=== PATIENT | male | born 1930 | race Caucasian/White ===

== ENCOUNTER 2018-07-25 10:48 | Inpatient (IN) | payer MEDICARE, BC ==
[~2018-07-25] VITALS: Ht 175.3 cm; Wt 76.0 kg
[~2018-07-25 10:48] MED LIST: ACET500C5 PO; ASCO500C15 PO; ASPI-1264 PO; ATOR10TA87 PO; BISA10SU60 RC; BISA5TAB10 PO; CALC500T11 PO; CLIN300C53 PO; D ME PO; DOCU-28 PO; HUM7525 SQ; HYDR-4383 PO; LANTUS SUBCUT; LEVO500T2 PO; LINA5TAB4 PO; MAGN400O6 PO; MELA5TAB12 PO; METO75TA PO; MULT1TAB74 PO; NA P133E4 RC; NEOM30OI16 TP; TRAZ-219 PO; VALS320T2 PO
[2018-07-25 13:01] LABS: BASOPHILS % (AUTO) 0.1 % (0-1); EOSINOPHILS # (AUTO) 0.1 X10'3 (0-0.9); EOSINOPHILS % (AUTO) 0.8 % (0-6); HEMATOCRIT 36.1 % (42.0-52.0); HEMOGLOBIN 12.3 g/dl (14.0-17.9); LYMPHOCYTES # (AUTO) 1.5 X10'3 (1.1-4.8); MEAN CORPUSCULAR HEMOGLOBIN 31.5 PG (27.0-31.0); MEAN CORPUSCULAR VOLUME 92.5 FL (78-98); MEAN PLATELET VOLUME 7.6 FL (7.4-10.4); MONOCYTES # (AUTO) 0.8 X10'3 (0-0.9); MONOCYTES % (AUTO) 5.1 % (2-12); NEUTROPHILS # (AUTO) 14.1 X10'3 (1.8-7.7); PLATELET COUNT 182 X10'3 (140-440); RED CELL DISTRIBUTION WIDTH 13.8 % (11.5-14.5); WHITE BLOOD COUNT 16.6 X10'3 (4.5-11.0)
[2018-07-25 13:15] LABS: ALANINE AMINOTRANSFERASE 22 U/L (12-78); ALBUMIN 3.1 G/DL (3.4-5.0); ALBUMIN/GLOBULIN RATIO 0.6 (1.1-1.5); ALKALINE PHOSPHATASE 105 IU/L (46-116); ANION GAP 11 (8-16); ASPARTATE AMINO TRANSFERASE 22 U/L (10-37); BILIRUBIN,TOTAL 0.7 MG/DL (0.1-1.0); BLOOD UREA NITROGEN 47 MG/DL (7-18); BUN/CREATININE RATIO 18.3 (5.4-32.0); CALCIUM 8.8 MG/DL (8.5-10.1); CHLORIDE 105 MMOL/L (99-107); CREATININE 2.57 MG/DL (0.60-1.10); GLUCOSE 128 MG/DL (70-104); POTASSIUM 4.5 MMOL/L (3.5-5.1); SODIUM 142 MMOL/L (135-145); TOTAL CARBON DIOXIDE 25.6 MMOL/L (24-32); TOTAL PROTEIN 8.1 G/DL (6.4-8.2); eGFR 24 ML/MIN
[2018-07-25 13:25] LABS: PARTIAL THROMBOPLASTIN TIME 29 SECONDS (22-32); PROTHROMBIN TIME 10.3 SECONDS (9.0-12.0)
[2018-07-25] MEDS ORDERED: ESCI10TA54 PO (13:56)
[2018-07-25] MEDS ORDERED: METO50TA7 PO (13:56)
[2018-07-25] MEDS ORDERED: ASPI-1265 PO (13:56)
[2018-07-25] MEDS ORDERED: LACTC PO (13:56)
[2018-07-25] MEDS ORDERED: QUET50TA PO (13:56)
[2018-07-25] MEDS ORDERED: MELA10TA PO (13:56)
[2018-07-25] MEDS ORDERED: ASCO500C15 PO (13:56)
[2018-07-25] MEDS ORDERED: MULT-1121 PO (13:56)
[2018-07-25] MEDS ORDERED: ATOR10TA87 PO (13:56)
[2018-07-25] MEDS ORDERED: INSU100C4 SQ (13:56)
[2018-07-25] MEDS ORDERED: QUET25TA PO ×2 (13:56)
[2018-07-25] MEDS ORDERED: FURO-150 PO ×3 (13:56→21:18)
[2018-07-25] MEDS ORDERED: INSU100I25 SQ (13:56)
[2018-07-25] MEDS ORDERED: DULR RC (13:56)
[2018-07-25] MEDS ORDERED: GUAI600T45 PO (13:56)
[2018-07-25] MEDS ORDERED: DOCU-28 PO (13:58)
[2018-07-25 14:08] LABS: CLARITY,URINE SLIGHTLY CLOUDY (Clear); COLOR,URINE YELLOW (Yellow); GLUCOSE, URINE NEGATIVE (Neg); KETONES,URINE NEGATIVE (Neg); LEUKOCYTE ESTERASE ,URINE MODERATE (Neg); NITRITES, URINE NEGATIVE (Neg); OCCULT BLOOD,URINE SMALL (Neg); PROTEIN,URINE 100 mg/dl (Neg); UROBILINOGEN,URINE 0.2 E.U/dL (0.2-1.0)
[2018-07-25 14:22] LABS: UA COLLECTION TYPE NON-SPECIFIED
[2018-07-25 14:25] LABS: BACTERIA,URINE FEW /HPF (Neg); MUCUS STRANDS FEW /LPF (Neg); RBC,URINE 0-2 /HPF (0-2); SQUAMOUS EPITHELIAL CELL,UR NONE SEEN /LPF (FEW); WBC,URINE 50-100 /HPF (0-4)
[2018-07-25] MEDS ORDERED: magnesium Cl slow-release 64mg tablet PO PRN (15:35)
[2018-07-25] MEDS ORDERED: ondansetron/PF 4mg/2ml inj IV PRN (15:35)
[2018-07-25] MEDS ORDERED: mag hydrox/Alum hydrox/simeth 30ml oral suspension PO PRN (15:35)
[2018-07-25] MEDS ORDERED: potassium Cl 20 mEq SR tablet PO PRN ×2 (15:35)
[2018-07-25] MEDS ORDERED: CefTRIAXone 2gm/D5W 50ml 50 ML IV ONE (15:35)
[2018-07-25] MEDS ORDERED: potassium Cl 40MEQ/NS 500ml 500 ML IV PRN ×2 (15:35)
[2018-07-25] MEDS ORDERED: magnesium 2GM in 50ml NS 50 ML IV PRN (15:35)
[2018-07-25] MEDS ORDERED: magnesium 4gm in 100ml NS 100 ML IV PRN (15:35)
[2018-07-25] MEDS ORDERED: magnesium hydroxide 30ml (MOM) UD suspension PO PRN (15:35)
[2018-07-25] MEDS ORDERED: MESSAGE TO PHARMACY PO ONE (15:40)
[2018-07-25] MEDS ORDERED: dextrose 50%-water 50ml dispensing syringe IV PRN ×2 (15:40)
[2018-07-25] MEDS ORDERED: glucagon, human recombinant 1mg kit SUBCUT PRN (15:40)
[2018-07-25] MEDS ORDERED: dextrose ORAL solution 15 GM/59 ML bottle PO PRN (15:40)
[2018-07-25] MEDS: normal saline 1000ml 1,000 ML IV SCH (16:14)
--- NOTE | 2018-07-25 17:30 | NUR ---
Patient in room [facility]. I have received report from Pj MIRAMONTES and had the opportunity to ask questions and assume patient care.
--- NOTE | 2018-07-25 18:18 | NUR ---
dinner tray to patient
--- NOTE | 2018-07-25 18:30 | NUR ---
Problems reprioritized. Patient report given, questions answered & plan of care reviewed with Vicky MIRAMONTES.
--- NOTE | 2018-07-25 18:40 | NUR ---
Patient in room [facility]. I have received report from Branden MIRAMONTES and had the opportunity to ask questions and assume patient care. Patient just arrived to floor from ER. Alert and oriented x2. Extremely [place].
[2018-07-25 19:00] VITALS: BP 143/56
[2018-07-25] MEDS: acetaminophen 325mg tablet PO PRN (19:17)
[2018-07-25] MEDS: heparin, porcine 5000 units/ml vial SQ SCH (19:22)
[2018-07-25] MEDS ORDERED: insulin glargine (Lantus) pen - multi-dose SQ SCH (21:00)
[2018-07-25] MEDS ORDERED: FURO40TA4 PO (21:18)
[2018-07-25] MEDS ORDERED: BISA5TAB10 PO (21:18)
[2018-07-25] MEDS ORDERED: NA P133E4 RC (21:27)
[2018-07-25] MEDS ORDERED: BISA10SU60 RC (21:27)
[2018-07-25] MEDS ORDERED: [UNRECOGNIZED DRUG - CODE] PO (21:28)
[2018-07-25] MEDS ORDERED: MAGN400O6 PO (21:28)
[2018-07-25] MEDS ORDERED: NEOM1OIN TOP (21:28)
[2018-07-25] MEDS ORDERED: ACET500C5 PO (21:28)
[2018-07-25] MEDS ORDERED: quetiapine 100mg tablet PO SCH (22:05)
[2018-07-25] MEDS ORDERED: Melatonin 3mg tablet PO SCH (22:05)
[2018-07-25] MEDS ORDERED: metoprolol succinate 25mg (24-HOUR) SR. Tablet PO SCH (22:05)
[2018-07-25] MEDS: furosemide 20MG tablet PO SCH ×2 (22:50→22:58)
[2018-07-25] MEDS: insulin Lispro (HumaLOG) vial - multi-dose SQ SCH (23:18)
[2018-07-26] VITALS: BP 103/46
--- NOTE | 2018-07-26 00:47 | NUR ---
Bladder scanned at 0030 just to check to see if retaining urine. Pt had 292cc. Pt. has been using his urinal going small amounts at a time. Has voided 4 x thus far, last amount was only 25cc. Will continue to monitor.
--- NOTE | 2018-07-26 06:09 | NUR ---
Problems reprioritized. Patient report given, questions answered & plan of care reviewed with Melba MIRAMONTES.
[2018-07-26 06:27] LABS: BASOPHILS % (AUTO) 0.1 % (0-1); EOSINOPHILS # (AUTO) 0.2 X10'3 (0-0.9); EOSINOPHILS % (AUTO) 2.2 % (0-6); HEMATOCRIT 33.5 % (42.0-52.0); HEMOGLOBIN 11.1 g/dl (14.0-17.9); LYMPHOCYTES # (AUTO) 2.7 X10'3 (1.1-4.8); LYMPHOCYTES % (AUTO) 25.5 % (21-51); MEAN CORPUSCULAR HEMOGLOBIN 31.1 PG (27.0-31.0); MEAN CORPUSCULAR HGB CONC 33.3 % (33.0-36.5); MEAN CORPUSCULAR VOLUME 93.3 FL (78-98); MEAN PLATELET VOLUME 7.8 FL (7.4-10.4); MONOCYTES # (AUTO) 0.8 X10'3 (0-0.9); MONOCYTES % (AUTO) 7.7 % (2-12); NEUTROPHILS # (AUTO) 6.9 X10'3 (1.8-7.7); NEUTROPHILS % (AUTO) 64.5 % (42-75); PLATELET COUNT 166 X10'3 (140-440); RED BLOOD COUNT 3.59 X10'6 (4.70-6.10); RED CELL DISTRIBUTION WIDTH 13.6 % (11.5-14.5); WHITE BLOOD COUNT 10.8 X10'3 (4.5-11.0)
[2018-07-26 06:30] LABS: ALANINE AMINOTRANSFERASE 19 U/L (12-78); ALBUMIN 2.7 G/DL (3.4-5.0); ALBUMIN/GLOBULIN RATIO 0.6 (1.1-1.5); ALKALINE PHOSPHATASE 95 IU/L (46-116); ANION GAP 11 (8-16); ASPARTATE AMINO TRANSFERASE 21 U/L (10-37); BILIRUBIN,TOTAL 0.5 MG/DL (0.1-1.0); BLOOD UREA NITROGEN 52 MG/DL (7-18); BUN/CREATININE RATIO 20.7 (5.4-32.0); CALCIUM 8.6 MG/DL (8.5-10.1); CHLORIDE 104 MMOL/L (99-107); CREATININE 2.51 MG/DL (0.60-1.10); GLUCOSE 210 MG/DL (70-104); POTASSIUM 4.1 MMOL/L (3.5-5.1); SODIUM 140 MMOL/L (135-145); TOTAL CARBON DIOXIDE 25.5 MMOL/L (24-32); TOTAL PROTEIN 7.3 G/DL (6.4-8.2); eGFR 24 ML/MIN
--- NOTE | 2018-07-26 06:30 | NUR ---
Patient in room [facility]. I have received report from Vicky MIRAMONTES and had the opportunity to ask questions and assume patient care. patient in bed sleeping appears comfortable
[2018-07-26 06:35] LABS: MAGNESIUM 2.1 MG/DL (1.5-2.4)
[2018-07-26 07:02] VITALS: BP 106/52
[2018-07-26] MEDS: heparin, porcine 5000 units/ml vial SQ SCH ×2 (07:44→19:58)
[2018-07-26] MEDS: azithromycin/NS 500mg/250ml 250 ML IV SCH (07:44)
[2018-07-26] MEDS: K and/or MAG REPLACEMENT MC SCH (08:00)
[2018-07-26] MEDS: insulin Lispro (HumaLOG) vial - multi-dose SQ SCH ×3 (09:13→19:02)
[2018-07-26] MEDS: CefTRIAXone/D5W-Rocephin 1gm 50 ML IV SCH (09:15)
[2018-07-26 10:54] VITALS: BP 111/52
[2018-07-26] MEDS: acetaminophen 325mg tablet PO PRN ×2 (11:21→23:32)
--- NOTE | 2018-07-26 14:55 | NUR ---
Initial/DMed: Pt admit w/ acute sepsis due to acute pneumonia, acute urinary tract infection and pyelonephritis. Pt is w/ dementia DM ed not appropriate at this time. Per MD note pt is w/ acute renal injury with elevated BUN possible dehydration and volume depletion. History of congestive heart failure.PO intake 75%. LBM 07/23/18 Will continue to monitor. Rec: 1. Continue with Heart Healthy Diet CHO control. 2. Monitor for ONS 3. Monitor for bowel care 4. Wt per RX Addendum: 07/26/18 at [address] Amended: Links added. Addendum: 07/26/18 at [address] LE[facility] Approves
--- NOTE | 2018-07-26 16:59 | NUR ---
I bladder scanned patient he had 214 in his bladder. I called Dr. June she had orders placed. I will continue to monitor.
[2018-07-26] MEDS: dextrose ORAL solution 15 GM/59 ML bottle PO PRN (17:22)
--- NOTE | 2018-07-26 18:13 | NUR ---
Problems reprioritized. Patient report given, Vicky MIRAMONTES questions answered & plan of care reviewed with . Patient sitting up in bed eating dinner
--- NOTE | 2018-07-26 18:20 | NUR ---
Patient in room [facility]. I have received report from Melba MIRAMONTES and had the opportunity to ask questions and assume patient care. Addendum: 07/27/18 at 0645 by Vicky Rayo RN Patient has been voiding and bladder scanned at 0045 for 200cc residual. Bladder scannned again at 0540 for total of 235cc residual, Did not straight cath this shift.
[2018-07-26 19:00] VITALS: BP 157/69
[2018-07-26] MEDS ORDERED: Melatonin 3mg tablet PO SCH (19:30)
[2018-07-26] MEDS ORDERED: quetiapine 100mg tablet PO SCH (19:30)
[2018-07-26] MEDS: metoprolol succinate 25mg (24-HOUR) SR. Tablet PO SCH (19:58)
[2018-07-26] MEDS: insulin glargine (Lantus) pen - multi-dose SQ SCH (20:48)
[2018-07-27 04:27] VITALS: BP 135/75
[2018-07-27] MEDS: K and/or MAG REPLACEMENT MC SCH (08:00)
[2018-07-27 08:21] VITALS: BP 119/79
[2018-07-27] MEDS: lactobacillus rhamnosus 10,000 MMU CELLS/CAPSULE PO SCH ×2 (08:27→19:35)
[2018-07-27] MEDS: heparin, porcine 5000 units/ml vial SQ SCH ×2 (08:27→19:36)
[2018-07-27] MEDS: insulin Lispro (HumaLOG) vial - multi-dose SQ SCH ×4 (08:36→20:52)
[2018-07-27] MEDS: azithromycin/NS 500mg/250ml 250 ML IV SCH (08:38)
[2018-07-27 08:55] LABS: BASOPHILS % (AUTO) 0.3 % (0-1); EOSINOPHILS # (AUTO) 0.3 X10'3 (0-0.9); EOSINOPHILS % (AUTO) 3.9 % (0-6); HEMATOCRIT 34.2 % (42.0-52.0); HEMOGLOBIN 11.6 g/dl (14.0-17.9); LYMPHOCYTES # (AUTO) 2.4 X10'3 (1.1-4.8); LYMPHOCYTES % (AUTO) 34.3 % (21-51); MEAN CORPUSCULAR HEMOGLOBIN 31.2 PG (27.0-31.0); MEAN CORPUSCULAR HGB CONC 33.9 % (33.0-36.5); MEAN CORPUSCULAR VOLUME 92.1 FL (78-98); MEAN PLATELET VOLUME 7.7 FL (7.4-10.4); MONOCYTES # (AUTO) 0.6 X10'3 (0-0.9); MONOCYTES % (AUTO) 9.1 % (2-12); NEUTROPHILS # (AUTO) 3.6 X10'3 (1.8-7.7); NEUTROPHILS % (AUTO) 52.4 % (42-75); PLATELET COUNT 179 X10'3 (140-440); RED BLOOD COUNT 3.72 X10'6 (4.70-6.10); RED CELL DISTRIBUTION WIDTH 14.2 % (11.5-14.5); WHITE BLOOD COUNT 6.9 X10'3 (4.5-11.0)
[2018-07-27 09:11] LABS: ALANINE AMINOTRANSFERASE 22 U/L (12-78); ALBUMIN 2.7 G/DL (3.4-5.0); ALBUMIN/GLOBULIN RATIO 0.6 (1.1-1.5); ALKALINE PHOSPHATASE 95 IU/L (46-116); ANION GAP 10 (8-16); ASPARTATE AMINO TRANSFERASE 42 U/L (10-37); BILIRUBIN,TOTAL 0.4 MG/DL (0.1-1.0); BLOOD UREA NITROGEN 58 MG/DL (7-18); BUN/CREATININE RATIO 24.1 (5.4-32.0); CALCIUM 8.6 MG/DL (8.5-10.1); CHLORIDE 104 MMOL/L (99-107); CREATININE 2.41 MG/DL (0.60-1.10); GLUCOSE 216 MG/DL (70-104); MAGNESIUM 2.3 MG/DL (1.5-2.4); POTASSIUM 4.2 MMOL/L (3.5-5.1); SODIUM 139 MMOL/L (135-145); TOTAL CARBON DIOXIDE 25.4 MMOL/L (24-32); TOTAL PROTEIN 7.6 G/DL (6.4-8.2); eGFR 26 ML/MIN
[2018-07-27] MEDS: CefTRIAXone/D5W-Rocephin 1gm 50 ML IV SCH (09:41)
[2018-07-27 11:00] VITALS: BP 128/62
[2018-07-27] MEDS: normal saline 1000ml 1,000 ML IV SCH (15:32)
[2018-07-27] MEDS ORDERED: non-formulary drug (Acetaminophen (Mapap) 1 CAP) PO PRN (17:20)
[2018-07-27] MEDS ORDERED: ACETAMINOPHEN PO PRN (17:20)
[2018-07-27] MEDS ORDERED: PHENYLEPHRINE PO PRN (17:20)
[2018-07-27] MEDS ORDERED: GUAIFENESIN PO PRN (17:20)
[2018-07-27] MEDS ORDERED: DEXTROMETHORPHAN PO PRN (17:20)
[2018-07-27] MEDS ORDERED: [UNRECOGNIZED DRUG - OTHER] PO PRN (17:20)
[2018-07-27] MEDS ORDERED: DOXYLAMINE PO PRN (17:20)
[2018-07-27] MEDS ORDERED: non-formulary drug (Na Phos,M-B/Na Phos,Di-Ba* (Fleet's Enema*) 1 BOTTLE) RC SCH (17:20)
--- NOTE | 2018-07-27 18:12 | NUR ---
Patient in room [facility]. I have received report from Melba MIRAMONTES and had the opportunity to ask questions and assume patient care. Pt ambulating with insurance claims assistant with PCT. IV intact. will continue to monitor.
--- NOTE | 2018-07-27 18:19 | NUR ---
Problems reprioritized. Patient report given, Vania MIRAMONTES questions answered & plan of care reviewed with . Patient walking the baxter with tech.
[2018-07-27] MEDS: docusate sod 100mg capsule PO SCH (19:35)
[2018-07-27] MEDS: guaiFENesin ER 600mg tablet PO SCH (19:36)
[2018-07-27] MEDS: metoprolol succinate 25mg (24-HOUR) SR. Tablet PO SCH (19:36)
[2018-07-27 20:00] VITALS: BP 175/86
[2018-07-27] MEDS ORDERED: non-formulary drug (Lactobacillus Acidophilus (ACIDOPHILUS capsule) 1 CAP) PO SCH (20:00)
[2018-07-27] MEDS: insulin glargine (Lantus) pen - multi-dose SQ SCH (20:51)
[2018-07-27] MEDS: Melatonin 3mg tablet PO SCH (20:53)
[2018-07-27] MEDS: furosemide 20MG tablet PO SCH ×2 (20:53→20:56)
[2018-07-27] MEDS ORDERED: non-formulary drug (Quetiapine Fumarate (Seroquel) 1 TAB) PO SCH (21:00)
[2018-07-27] MEDS ORDERED: non-formulary drug (Metoprolol Succinate* (Toprol Xl*) 1 TAB) PO SCH (21:00)
[2018-07-28] VITALS: BP 135/87
[2018-07-28] MEDS: normal saline 1000ml 1,000 ML IV SCH (03:46)
[2018-07-28] MEDS: acetaminophen 325mg tablet PO PRN (04:54)
--- NOTE | 2018-07-28 06:20 | NUR ---
Problems reprioritized. Patient report given, questions answered & plan of care reviewed with Caroline MIRAMONTES.
[2018-07-28 06:23] LABS: BASOPHILS % (AUTO) 0.3 % (0-1); EOSINOPHILS # (AUTO) 0.3 X10'3 (0-0.9); EOSINOPHILS % (AUTO) 4.8 % (0-6); HEMATOCRIT 31.3 % (42.0-52.0); HEMOGLOBIN 10.6 g/dl (14.0-17.9); LYMPHOCYTES # (AUTO) 2.5 X10'3 (1.1-4.8); LYMPHOCYTES % (AUTO) 38.7 % (21-51); MEAN CORPUSCULAR HEMOGLOBIN 31.2 PG (27.0-31.0); MEAN CORPUSCULAR HGB CONC 33.9 % (33.0-36.5); MEAN CORPUSCULAR VOLUME 91.9 FL (78-98); MEAN PLATELET VOLUME 7.3 FL (7.4-10.4); MONOCYTES # (AUTO) 0.6 X10'3 (0-0.9); NEUTROPHILS % (AUTO) 46.2 % (42-75); PLATELET COUNT 174 X10'3 (140-440); RED CELL DISTRIBUTION WIDTH 13.6 % (11.5-14.5); WHITE BLOOD COUNT 6.4 X10'3 (4.5-11.0)
--- NOTE | 2018-07-28 06:30 | NUR ---
Patient in room [facility]. I have received report from Vania MIRAMONTES and had the opportunity to ask questions and assume patient care. Patient in bed sleeping apperas comfortable. Call light in reach
[2018-07-28 06:38] LABS: ALANINE AMINOTRANSFERASE 20 U/L (12-78); ALBUMIN 2.5 G/DL (3.4-5.0); ALBUMIN/GLOBULIN RATIO 0.6 (1.1-1.5); ALKALINE PHOSPHATASE 84 IU/L (46-116); ANION GAP 8 (8-16); ASPARTATE AMINO TRANSFERASE 25 U/L (10-37); BILIRUBIN,TOTAL 0.3 MG/DL (0.1-1.0); BLOOD UREA NITROGEN 56 MG/DL (7-18); BUN/CREATININE RATIO 25.3 (5.4-32.0); CALCIUM 8.5 MG/DL (8.5-10.1); CHLORIDE 108 MMOL/L (99-107); CREATININE 2.21 MG/DL (0.60-1.10); GLUCOSE 129 MG/DL (70-104); MAGNESIUM 2.2 MG/DL (1.5-2.4); POTASSIUM 4.4 MMOL/L (3.5-5.1); SODIUM 142 MMOL/L (135-145); TOTAL CARBON DIOXIDE 25.8 MMOL/L (24-32); TOTAL PROTEIN 6.9 G/DL (6.4-8.2); eGFR 28 ML/MIN
[2018-07-28 07:30] VITALS: BP 141/70
[2018-07-28] MEDS: K and/or MAG REPLACEMENT MC SCH (08:00)
[2018-07-28] MEDS: aspirin 81mg tab.chew PO SCH (08:00)
[2018-07-28] MEDS: CefTRIAXone/D5W-Rocephin 1gm 50 ML IV SCH (09:03)
[2018-07-28] MEDS: neomy sulf/bacitrac zn/polymixin b oint 14.2 gm tube TP SCH (09:03)
[2018-07-28] MEDS: azithromycin 250mg tablet PO SCH (09:04)
[2018-07-28] MEDS: guaiFENesin ER 600mg tablet PO SCH ×2 (09:04→19:58)
[2018-07-28] MEDS: lactobacillus rhamnosus 10,000 MMU CELLS/CAPSULE PO SCH ×2 (09:04→19:58)
[2018-07-28] MEDS: multivitamins, therapeutics tablet PO SCH (09:04)
[2018-07-28] MEDS: heparin, porcine 5000 units/ml vial SQ SCH ×2 (09:04→19:59)
[2018-07-28] MEDS: atorvastatin 10mg tablet PO SCH (09:05)
[2018-07-28] MEDS: docusate sod 100mg capsule PO SCH ×2 (09:05→19:58)
[2018-07-28] MEDS: CITALOpram 10mg tablet PO SCH (09:05)
[2018-07-28] MEDS: furosemide 40mg tablet PO SCH (09:05)
[2018-07-28] MEDS: ascorbic acid 500mg tablet PO SCH (09:05)
[2018-07-28] MEDS: bisacodyl 5mg tablet.DR PO SCH (09:06)
[2018-07-28] MEDS: insulin Lispro (HumaLOG) vial - multi-dose SQ SCH ×3 (09:09→19:57)
[2018-07-28 11:30] VITALS: BP 105/52
[2018-07-28] MEDS ORDERED: bisacodyl 10mg suppository rectal RC ONE (15:35)
--- NOTE | 2018-07-28 18:30 | NUR ---
Problems reprioritized. Patient report given, Pat RN questions answered & plan of care reviewed with . Patient in bed tabs regional program manager light in reach
--- NOTE | 2018-07-28 18:30 | NUR ---
Patient in room [facility]. I have received report from FE Reilly and had the opportunity to ask questions and assume patient care.
[2018-07-28 19:30] VITALS: BP 147/74
[2018-07-28] MEDS: QUEtiapine 25mg tablet PO SCH (19:58)
[2018-07-28] MEDS: metoprolol succinate 25mg (24-HOUR) SR. Tablet PO SCH (19:58)
[2018-07-28] MEDS: furosemide 20MG tablet PO SCH (21:00)
[2018-07-28] MEDS: insulin glargine (Lantus) pen - multi-dose SQ SCH (22:59)
[2018-07-28] MEDS: Melatonin 3mg tablet PO SCH (23:00)
[2018-07-29] VITALS: BP 123/68
--- NOTE | 2018-07-29 06:30 | NUR ---
report given to FE Talamantes
[2018-07-29 07:00] VITALS: BP 159/66
[2018-07-29 07:42] LABS: BASOPHILS % (AUTO) 0.5 % (0-1); EOSINOPHILS # (AUTO) 0.3 X10'3 (0-0.9); EOSINOPHILS % (AUTO) 4.8 % (0-6); HEMATOCRIT 34.9 % (42.0-52.0); HEMOGLOBIN 11.6 g/dl (14.0-17.9); LYMPHOCYTES # (AUTO) 2.1 X10'3 (1.1-4.8); LYMPHOCYTES % (AUTO) 35.4 % (21-51); MEAN CORPUSCULAR HEMOGLOBIN 30.8 PG (27.0-31.0); MEAN CORPUSCULAR HGB CONC 33.3 % (33.0-36.5); MEAN CORPUSCULAR VOLUME 92.4 FL (78-98); MEAN PLATELET VOLUME 7.4 FL (7.4-10.4); MONOCYTES # (AUTO) 0.6 X10'3 (0-0.9); MONOCYTES % (AUTO) 9.6 % (2-12); NEUTROPHILS % (AUTO) 49.7 % (42-75); PLATELET COUNT 196 X10'3 (140-440); RED BLOOD COUNT 3.77 X10'6 (4.70-6.10); RED CELL DISTRIBUTION WIDTH 13.3 % (11.5-14.5)
[2018-07-29] MEDS: furosemide 40mg tablet PO SCH (08:00)
[2018-07-29] MEDS: K and/or MAG REPLACEMENT MC SCH (08:00)
[2018-07-29 08:03] LABS: ALANINE AMINOTRANSFERASE 27 U/L (12-78); ALBUMIN 2.7 G/DL (3.4-5.0); ALBUMIN/GLOBULIN RATIO 0.6 (1.1-1.5); ALKALINE PHOSPHATASE 90 IU/L (46-116); ANION GAP 12 (8-16); ASPARTATE AMINO TRANSFERASE 38 U/L (10-37); BILIRUBIN,TOTAL 0.3 MG/DL (0.1-1.0); BLOOD UREA NITROGEN 54 MG/DL (7-18); BUN/CREATININE RATIO 28.6 (5.4-32.0); CALCIUM 8.8 MG/DL (8.5-10.1); CHLORIDE 106 MMOL/L (99-107); CREATININE 1.89 MG/DL (0.60-1.10); GLUCOSE 222 MG/DL (70-104); MAGNESIUM 2.2 MG/DL (1.5-2.4); POTASSIUM 4.2 MMOL/L (3.5-5.1); SODIUM 142 MMOL/L (135-145); TOTAL CARBON DIOXIDE 24.5 MMOL/L (24-32); TOTAL PROTEIN 7.2 G/DL (6.4-8.2); eGFR 34 ML/MIN
[2018-07-29] MEDS: CITALOpram 10mg tablet PO SCH (08:21)
[2018-07-29] MEDS: bisacodyl 5mg tablet.DR PO SCH (08:21)
[2018-07-29] MEDS: ascorbic acid 500mg tablet PO SCH (08:21)
[2018-07-29] MEDS: CefTRIAXone/D5W-Rocephin 1gm 50 ML IV SCH (08:21)
[2018-07-29] MEDS: lactobacillus rhamnosus 10,000 MMU CELLS/CAPSULE PO SCH ×2 (08:21→19:10)
[2018-07-29] MEDS: multivitamins, therapeutics tablet PO SCH (08:21)
[2018-07-29] MEDS: aspirin 81mg tab.chew PO SCH (08:21)
[2018-07-29] MEDS: heparin, porcine 5000 units/ml vial SQ SCH ×2 (08:21→21:01)
[2018-07-29] MEDS: docusate sod 100mg capsule PO SCH ×2 (08:21→19:10)
[2018-07-29] MEDS: azithromycin 250mg tablet PO SCH (08:21)
[2018-07-29] MEDS: atorvastatin 10mg tablet PO SCH (08:21)
[2018-07-29] MEDS: guaiFENesin ER 600mg tablet PO SCH ×2 (08:21→19:10)
[2018-07-29] MEDS: neomy sulf/bacitrac zn/polymixin b oint 14.2 gm tube TP SCH (08:32)
[2018-07-29] MEDS: insulin Lispro (HumaLOG) vial - multi-dose SQ SCH ×4 (08:35→21:01)
[2018-07-29 11:00] VITALS: BP 138/73
[2018-07-29] MEDS ORDERED: CEFD300C3 PO (14:58)
[2018-07-29] MEDS ORDERED: LACT1CAP26 PO (14:58)
[2018-07-29] MEDS ORDERED: AZI25OT PO (14:58)
--- NOTE | 2018-07-29 16:00 | NUR ---
Notified Dr Alas pt can not return to [facility] today per Meghann in CM. The facility rep will see him in am to determine indepence and safety to return to facility.
[2018-07-29] MEDS: dextrose ORAL solution 15 GM/59 ML bottle PO PRN (17:06)
--- NOTE | 2018-07-29 17:59 | NUR ---
Problems reprioritized. Patient report given, questions answered & plan of care reviewed with FE Torres.
[2018-07-29 18:00] VITALS: BP 151/74
--- NOTE | 2018-07-29 18:30 | NUR ---
Patient in room [facility]. I have received report from Vinita MIRAMONTES and had the opportunity to ask questions and assume patient care. PT sitting up in chair at bedside, consuming meal with zest.
[2018-07-29] MEDS: metoprolol succinate 25mg (24-HOUR) SR. Tablet PO SCH (19:10)
[2018-07-29] MEDS: QUEtiapine 25mg tablet PO SCH (19:10)
[2018-07-29] MEDS: insulin glargine (Lantus) pen - multi-dose SQ SCH (21:00)
[2018-07-29] MEDS: furosemide 20MG tablet PO SCH (21:00)
[2018-07-29] MEDS: fluconazole 100mg tablet PO SCH (21:01)
[2018-07-29] MEDS: Melatonin 3mg tablet PO SCH (21:01)
[2018-07-30] VITALS: BP 146/76
[2018-07-30 06:27] LABS: BASOPHILS % (AUTO) 0.4 % (0-1); EOSINOPHILS # (AUTO) 0.4 X10'3 (0-0.9); EOSINOPHILS % (AUTO) 4.8 % (0-6); HEMATOCRIT 33.3 % (42.0-52.0); HEMOGLOBIN 11.2 g/dl (14.0-17.9); LYMPHOCYTES # (AUTO) 2.5 X10'3 (1.1-4.8); LYMPHOCYTES % (AUTO) 32.6 % (21-51); MEAN CORPUSCULAR HEMOGLOBIN 31.1 PG (27.0-31.0); MEAN CORPUSCULAR HGB CONC 33.8 % (33.0-36.5); MEAN CORPUSCULAR VOLUME 92.2 FL (78-98); MEAN PLATELET VOLUME 7.2 FL (7.4-10.4); MONOCYTES # (AUTO) 0.7 X10'3 (0-0.9); MONOCYTES % (AUTO) 9.3 % (2-12); NEUTROPHILS % (AUTO) 52.9 % (42-75); PLATELET COUNT 204 X10'3 (140-440); RED BLOOD COUNT 3.61 X10'6 (4.70-6.10); RED CELL DISTRIBUTION WIDTH 13.5 % (11.5-14.5); WHITE BLOOD COUNT 7.6 X10'3 (4.5-11.0)
[2018-07-30 06:44] LABS: ALANINE AMINOTRANSFERASE 34 U/L (12-78); ALBUMIN 2.7 G/DL (3.4-5.0); ALBUMIN/GLOBULIN RATIO 0.6 (1.1-1.5); ALKALINE PHOSPHATASE 92 IU/L (46-116); ANION GAP 10 (8-16); ASPARTATE AMINO TRANSFERASE 41 U/L (10-37); BILIRUBIN,TOTAL 0.4 MG/DL (0.1-1.0); BLOOD UREA NITROGEN 52 MG/DL (7-18); CHLORIDE 107 MMOL/L (99-107); CREATININE 2.08 MG/DL (0.60-1.10); GLUCOSE 187 MG/DL (70-104); MAGNESIUM 2.2 MG/DL (1.5-2.4); POTASSIUM 4.3 MMOL/L (3.5-5.1); SODIUM 141 MMOL/L (135-145); TOTAL CARBON DIOXIDE 23.6 MMOL/L (24-32); TOTAL PROTEIN 7.3 G/DL (6.4-8.2); eGFR 30 ML/MIN
--- NOTE | 2018-07-30 06:51 | NUR ---
Problems reprioritized. Patient report given, questions answered & plan of care reviewed with Madhuri and Lavinia RNs.
[2018-07-30 08:00] VITALS: BP 170/80
[2018-07-30] MEDS: CefTRIAXone/D5W-Rocephin 1gm 50 ML IV SCH ×3 (08:00→09:35)
[2018-07-30] MEDS: K and/or MAG REPLACEMENT MC SCH (08:00)
[2018-07-30] MEDS: lactobacillus rhamnosus 10,000 MMU CELLS/CAPSULE PO SCH (09:12)
[2018-07-30] MEDS: guaiFENesin ER 600mg tablet PO SCH (09:12)
[2018-07-30] MEDS: bisacodyl 5mg tablet.DR PO SCH (09:13)
[2018-07-30] MEDS: furosemide 40mg tablet PO SCH (09:13)
[2018-07-30] MEDS: atorvastatin 10mg tablet PO SCH (09:14)
[2018-07-30] MEDS: azithromycin 250mg tablet PO SCH (09:14)
[2018-07-30] MEDS: ascorbic acid 500mg tablet PO SCH (09:14)
[2018-07-30] MEDS: docusate sod 100mg capsule PO SCH (09:15)
[2018-07-30] MEDS: aspirin 81mg tab.chew PO SCH (09:15)
[2018-07-30] MEDS: multivitamins, therapeutics tablet PO SCH (09:15)
[2018-07-30] MEDS: CITALOpram 10mg tablet PO SCH (09:15)
[2018-07-30] MEDS: fluconazole 100mg tablet PO SCH (09:16)
[2018-07-30] MEDS: heparin, porcine 5000 units/ml vial SQ SCH (09:17)
[2018-07-30] MEDS: insulin Lispro (HumaLOG) vial - multi-dose SQ SCH ×2 (09:29→13:48)
[2018-07-30] MEDS: neomy sulf/bacitrac zn/polymixin b oint 14.2 gm tube TP SCH (09:34)
--- NOTE | 2018-07-30 10:17 | NUR ---
Reassessment: Acute sepsis d/t acute pneumonia and acute UTI and pyelonephritis resolving with tx per MD notes. Pt A/O x 3 and agitated and fatigued per physical assessment, will continue to monitor appropriateness for DM ed. Documented PO intake 75-100% meeting nutrient needs. LB 07/28. Will continue to follow. Rec: 1. Continue with Heart Healthy Diet CHO control. 2. Monitor for ONS 3. Monitor for bowel care 4. Wt per rx Addendum: 07/30/18 at [address] Amended: Links added.
[2018-07-30 12:00] VITALS: BP 137/76
[2018-07-30] MEDS ORDERED: CefTRIAXone 1000mg IM Kit (w/lidocaine diluent) IM ONE (12:50)
--- NOTE | 2018-07-30 15:04 | NUR ---
pt. discharged in a stable condition. Discussed discharge instructions, debetic management, medications with patient. Poor feedback/ pt. not interested. Stated "Well, who cares?" Encouraged and educated on the important of the information. Patient states he is missing "his only pair of shoes". Lost and found called. Awaiting response. Son, Cullen called, awaiting response. Staff at [facility] notified in report - her name was Concetta. Concetta was also notified that the patient has new antibiotic written prescriptions in his discharge paperwork. Pt. left with no IV as he had pulled his IV on RAC out earlier. Bandage applied. Patient did not leave any other valuables. Left with [employer] attendant in w/c.
--- NOTE | 2018-07-30 17:52 | NUR ---
Reviewed assessment, agree with Lavinia MIRAMONTES
== END 2018-07-30 15:18 | disposition home or self-care (01) | DRG 871 ==
LOC: EDBD 10:49 → ER 10:49 → ED HOLD 15:32 → MERGE 15:32 → SUR 3N 18:32
PROVIDERS: ADMIT Internal Medicine; ATTEND Family Medicine
DX: A41.9 Sepsis, unspecified organism (principal); J18.1 Lobar pneumonia, unspecified organism; I13.0 Hypertensive heart and chronic kidney disease with heart failure and stage 1 through stage 4 chronic kidney disease, or unspecified chronic kidney disease; N30.01 Acute cystitis with hematuria; N10 Acute pyelonephritis; N17.9 Acute kidney failure, unspecified; N18.3 Chronic kidney disease, stage 3 (moderate); E78.5 Hyperlipidemia, unspecified; F03.90 Unspecified dementia, unspecified severity, without behavioral disturbance, psychotic disturbance, mood disturbance, and anxiety; G89.29 Other chronic pain; I50.9 Heart failure, unspecified; Z66 Do not resuscitate; E11.22 Type 2 diabetes mellitus with diabetic chronic kidney disease; W06.XXXA Fall from bed, initial encounter; F32.9 Major depressive disorder, single episode, unspecified; R19.7 Diarrhea, unspecified; M54.5 Low back pain; Z95.0 Presence of cardiac pacemaker; Z79.82 Long term (current) use of aspirin; Z79.899 Other long term (current) drug therapy; Y93.89 Activity, other specified; Y92.89 Other specified places as the place of occurrence of the external cause; Y99.8 Other external cause status
CPT/HCPCS: 36415; 71045; 72070; 72100; 74176; 80053; 81001; 82948; 83036; 83605; 83690; 83735; 83880; 84145; 84484; 85025; 85610; 85730; 87040; 87070; 87088; 93005; 93306; 97161; 97530; 99285; G0378; J0456; J0696; J1644; J1815; J7030

== ENCOUNTER 2018-10-24 05:35 | Inpatient (IN) | payer MEDICARE, BC ==
[~2018-10-24] VITALS: Ht 182.9 cm; Wt 72.7 kg
[~2018-10-24 05:35] MED LIST changes: +ASPI-1265 PO; +ESCI10TA54 PO; +FURO-150 PO; +FURO40TA4 PO; +GUAI600T45 PO; +INSU100C4 SQ; +INSU100I25 SQ; +LACT1CAP26 PO; +LACTC PO; +MELA10TA PO; +METO50TA7 PO; +MULT-1121 PO; +NEOM1OIN TOP; +QUET50TA PO; +[UNRECOGNIZED DRUG - CODE] PO
[2018-10-24] MEDS ORDERED: acetaminophen 325mg tablet PO ONE (06:00)
[2018-10-24] MEDS ORDERED: morphine 4 MG/ML inj SYRINge IV ONE (06:15)
[2018-10-24] MEDS ORDERED: ondansetron/PF 4mg/2ml inj IV ONE (06:15)
[2018-10-24] MEDS ORDERED: normal saline 1000ml 1,000 ML IV ONE (06:55)
[2018-10-24 06:56] LABS: BASOPHILS % (AUTO) 0.6 % (0-1); EOSINOPHILS # (AUTO) 0.4 X10'3 (0-0.9); EOSINOPHILS % (AUTO) 5.1 % (0-6); HEMATOCRIT 35.9 % (42.0-52.0); LYMPHOCYTES # (AUTO) 2.6 X10'3 (1.1-4.8); LYMPHOCYTES % (AUTO) 36.5 % (21-51); MEAN CORPUSCULAR HEMOGLOBIN 30.6 PG (27.0-31.0); MEAN CORPUSCULAR HGB CONC 33.3 g/dL (33.0-36.5); MEAN CORPUSCULAR VOLUME 91.7 FL (78-98); MEAN PLATELET VOLUME 7.8 FL (7.4-10.4); MONOCYTES # (AUTO) 0.6 X10'3 (0-0.9); NEUTROPHILS # (AUTO) 3.6 X10'3 (1.8-7.7); NEUTROPHILS % (AUTO) 49.8 % (42-75); PLATELET COUNT 168 X10'3 (140-440); RED BLOOD COUNT 3.91 X10'6 (4.70-6.10); RED CELL DISTRIBUTION WIDTH 14.1 % (11.5-14.5); WHITE BLOOD COUNT 7.2 X10'3 (4.5-11.0)
[2018-10-24 07:04] LABS: ALANINE AMINOTRANSFERASE 23 U/L (12-78); ALBUMIN 3.1 G/DL (3.4-5.0); ALBUMIN/GLOBULIN RATIO 0.7 (1.1-1.5); ALKALINE PHOSPHATASE 103 IU/L (46-116); ANION GAP 6 (8-16); ASPARTATE AMINO TRANSFERASE 19 U/L (10-37); BILIRUBIN,TOTAL 0.5 MG/DL (0.1-1.0); BLOOD UREA NITROGEN 46 MG/DL (7-18); BUN/CREATININE RATIO 21.7 (5.4-32.0); CALCIUM 9.2 MG/DL (8.5-10.1); CHLORIDE 108 MMOL/L (99-107); CREATININE 2.12 MG/DL (0.60-1.10); GLUCOSE 135 MG/DL (70-104); MAGNESIUM 2.1 MG/DL (1.5-2.4); POTASSIUM 4.5 MMOL/L (3.5-5.1); SODIUM 143 MMOL/L (135-145); TOTAL CARBON DIOXIDE 28.7 MMOL/L (24-32); TOTAL PROTEIN 7.4 G/DL (6.4-8.2); eGFR 30 ML/MIN
[2018-10-24] MEDS ORDERED: potassium Cl 40MEQ/NS 500ml 500 ML IV PRN ×2 (08:40)
[2018-10-24] MEDS ORDERED: non-formulary drug (Insulin Aspart (Novolog) 1 UNITS) SQ SCH (08:40)
[2018-10-24] MEDS ORDERED: magnesium 4gm in 100ml NS 100 ML IV PRN (08:40)
[2018-10-24] MEDS ORDERED: potassium Cl 20 mEq SR tablet PO PRN ×2 (08:40)
[2018-10-24] MEDS ORDERED: bisacodyl 5mg tablet.DR PO PRN (08:40)
[2018-10-24] MEDS ORDERED: non-formulary drug (Na Phos,M-B/Na Phos,Di-Ba* (Fleet's Enema*) 1 BOTTLE) RC SCH (08:40)
[2018-10-24] MEDS ORDERED: acetaminophen 325mg tablet PO PRN ×2 (08:40→08:45)
[2018-10-24] MEDS ORDERED: glucagon, human recombinant 1mg kit SUBCUT PRN (08:40)
[2018-10-24] MEDS ORDERED: magnesium 2GM in 50ml NS 50 ML IV PRN (08:40)
[2018-10-24] MEDS ORDERED: dextrose 50%-water 50ml dispensing syringe IV PRN ×2 (08:40)
[2018-10-24] MEDS ORDERED: MESSAGE TO PHARMACY PO ONE (08:40)
[2018-10-24] MEDS ORDERED: mag hydrox/Alum hydrox/simeth 30ml oral suspension PO PRN (08:40)
[2018-10-24] MEDS ORDERED: docusate sod 100mg capsule PO PRN (08:40)
[2018-10-24] MEDS ORDERED: ondansetron/PF 4mg/2ml inj IV PRN (08:40)
[2018-10-24] MEDS ORDERED: dextrose ORAL solution 15 GM/59 ML bottle PO PRN ×2 (08:40)
[2018-10-24] MEDS ORDERED: FURO40TA4 PO (08:47)
[2018-10-24] MEDS: normal saline 1000ml 1,000 ML IV SCH ×2 (09:10→18:39)
[2018-10-24 10:12] LABS: CLARITY,URINE CLEAR (Clear); COLOR,URINE STRAW (Yellow); GLUCOSE, URINE NEGATIVE (Neg); KETONES,URINE NEGATIVE (Neg); LEUKOCYTE ESTERASE ,URINE TRACE (Neg); NITRITES, URINE NEGATIVE (Neg); OCCULT BLOOD,URINE NEGATIVE (Neg); PH,URINE 5.5 (4.8-8.0); PROTEIN,URINE 30 mg/dl (Neg); UROBILINOGEN,URINE 0.2 E.U/dL (0.2-1.0)
[2018-10-24 10:15] LABS: UA COLLECTION TYPE CLN CATCH MIDSTREAM
[2018-10-24 10:19] LABS: BACTERIA,URINE FEW /HPF (Neg); HYALINE CASTS 0-3 /LPF (NEGATIVE); MUCUS STRANDS NONE SEEN /LPF (Neg); RBC,URINE NONE SEEN /HPF (0-2); RENAL CELLS, URINE FEW /HPF; SQUAMOUS EPITHELIAL CELL,UR NONE SEEN /LPF (FEW); WBC CLUMPS,URINE FEW /HPF (NEGATIVE)
[2018-10-24 11:15] VITALS: BP 130/65
[2018-10-24 18:00] VITALS: BP 138/59
--- NOTE | 2018-10-24 18:41 | NUR ---
Problems reprioritized. Patient report given, questions answered & plan of care reviewed with FE Zeng.
--- NOTE | 2018-10-24 18:44 | NUR ---
Patient in room [facility] 4014. I have received report from shelli Arias and had the opportunity to ask questions and assume patient care.
[2018-10-24] MEDS: Melatonin 3mg tablet PO SCH (20:25)
[2018-10-24] MEDS: ascorbic acid 500mg tablet PO SCH (20:25)
[2018-10-24] MEDS: metoprolol succinate 25mg (24-HOUR) SR. Tablet PO SCH (20:26)
[2018-10-24] MEDS: QUEtiapine 25mg tablet PO SCH (20:26)
[2018-10-24] MEDS: insulin Lispro (HumaLOG) vial - multi-dose SQ SCH (20:38)
[2018-10-24] MEDS: insulin glargine (Lantus) pen - multi-dose SQ SCH (20:39)
[2018-10-24] MEDS: HYDROmorphone inj. 0.5 MG/0.5 ML DISP.SYRIN IV PRN (20:43)
[2018-10-24 22:00] VITALS: BP 123/61
[2018-10-25] VITALS (15 sets, daily range): BP systolic 15–146; BP diastolic 48–72
[2018-10-25] MEDS: HYDROmorphone inj. 0.5 MG/0.5 ML DISP.SYRIN IV PRN (02:10)
[2018-10-25] MEDS: normal saline 1000ml 1,000 ML IV SCH ×3 (02:10→23:35)
--- NOTE | 2018-10-25 06:37 | NUR ---
Problems reprioritized. Patient report given, questions answered & plan of care reviewed with FE FORBES.
--- NOTE | 2018-10-25 06:39 | NUR ---
Patient in room [facility] 4014. I have received report from Azucena MIRAMONTES and had the opportunity to ask questions and assume patient care.
[2018-10-25 06:42] LABS: BASOPHILS % (AUTO) 0.5 % (0-1); EOSINOPHILS # (AUTO) 0.3 X10'3 (0-0.9); EOSINOPHILS % (AUTO) 5.9 % (0-6); HEMATOCRIT 30.4 % (42.0-52.0); HEMOGLOBIN 10.1 g/dl (14.0-17.9); LYMPHOCYTES # (AUTO) 2.2 X10'3 (1.1-4.8); LYMPHOCYTES % (AUTO) 37.1 % (21-51); MEAN CORPUSCULAR HEMOGLOBIN 30.8 PG (27.0-31.0); MEAN CORPUSCULAR HGB CONC 33.2 g/dL (33.0-36.5); MEAN CORPUSCULAR VOLUME 92.6 FL (78-98); MEAN PLATELET VOLUME 7.5 FL (7.4-10.4); MONOCYTES # (AUTO) 0.6 X10'3 (0-0.9); MONOCYTES % (AUTO) 10.9 % (2-12); NEUTROPHILS # (AUTO) 2.7 X10'3 (1.8-7.7); NEUTROPHILS % (AUTO) 45.6 % (42-75); PLATELET COUNT 119 X10'3 (140-440); RED BLOOD COUNT 3.29 X10'6 (4.70-6.10); RED CELL DISTRIBUTION WIDTH 13.8 % (11.5-14.5); WHITE BLOOD COUNT 5.9 X10'3 (4.5-11.0)
--- NOTE | 2018-10-25 06:49 | NUR ---
Patient in room [facility] 4014. I have received report from and had the opportunity to ask questions and assume patient care. FE Zeng
[2018-10-25 06:57] LABS: ALANINE AMINOTRANSFERASE 21 U/L (12-78); ALBUMIN 2.5 G/DL (3.4-5.0); ALBUMIN/GLOBULIN RATIO 0.7 (1.1-1.5); ALKALINE PHOSPHATASE 87 IU/L (46-116); ANION GAP 3 (8-16); ASPARTATE AMINO TRANSFERASE 18 U/L (10-37); BILIRUBIN,TOTAL 0.4 MG/DL (0.1-1.0); BLOOD UREA NITROGEN 41 MG/DL (7-18); BUN/CREATININE RATIO 20.1 (5.4-32.0); CALCIUM 8.4 MG/DL (8.5-10.1); CHLORIDE 110 MMOL/L (99-107); CHOL/HDL RATIO 3.3 (0.00-4.99); CHOLESTEROL 121 MG/DL (0-200); CREATININE 2.04 MG/DL (0.60-1.10); GLUCOSE 224 MG/DL (70-104); HDL CHOLESTEROL 37 MG/DL (35-60); LDL CHOLESTEROL 69 MG/DL (50-100); MAGNESIUM 1.9 MG/DL (1.5-2.4); POTASSIUM 4.9 MMOL/L (3.5-5.1); SODIUM 140 MMOL/L (135-145); TOTAL CARBON DIOXIDE 26.7 MMOL/L (24-32); TOTAL PROTEIN 6.3 G/DL (6.4-8.2); TRIGLYCERIDES 150 MG/DL (20-135); eGFR 31 ML/MIN
--- NOTE | 2018-10-25 07:18 | NUR ---
Pt will be having surgery [address] Wall/surgeon. Okay for pt to have breakfast/NPO after breakfast
[2018-10-25] MEDS: K and/or MAG REPLACEMENT MC SCH (07:53)
[2018-10-25] MEDS ORDERED: enoxaparin 40mg/0.4ml syringe SQ SCH (08:00)
[2018-10-25] MEDS: aspirin 81mg tab.chew PO SCH (08:05)
[2018-10-25] MEDS: citalopram 20mg tablet PO SCH (08:06)
[2018-10-25] MEDS: multivitamins, therapeutics tablet PO SCH (08:08)
[2018-10-25] MEDS: atorvastatin 10mg tablet PO SCH (08:08)
[2018-10-25] MEDS: furosemide 40mg tablet PO SCH (08:08)
[2018-10-25] MEDS: ascorbic acid 500mg tablet PO SCH ×2 (08:09→20:49)
[2018-10-25] MEDS: enoxaparin 30mg/0.3ml syringe SQ SCH (08:11)
[2018-10-25] MEDS: insulin Lispro (HumaLOG) vial - multi-dose SQ SCH (09:43)
--- NOTE | 2018-10-25 11:39 | NUR ---
DM Consult: A1C 9.0. Pt admit s/p fall w/ R hip fx. Hx dementia AOx3 and confused per EMR. Pt not appropriate for DM ed at this time given hx. PO fluctuates between 0-100% meals; ensure high protein added for additional protein needs given will need surgical repair; MD and dietary notified. LBM 10/23. Will continue to monitor. Rec: 1. continue carb controlled/heart healthy diet 2. ensure high protein TIDWM 3. routine bowel care 4. wt per rx Addendum: 10/25/18 at [address] Amended: Links added.
--- NOTE | 2018-10-25 11:55 | NUR ---
Problems reprioritized. Patient report given, questions answered & plan of care reviewed with Juana MIRAMONTES.
--- NOTE | 2018-10-25 12:14 | NUR ---
Student Medication Administration:For this medication-pass time frame 7063-1108, all medications were reviewed, administered and documented per hospital policy by Kwame Ramirez. Student documentation:I have reviewed and agree with all interventions, assessments performed and documented by Kwame Ramirez.
[2018-10-25] MEDS ORDERED: cefazolin/dext.iso 2gm/100ml 100 ML IV ONE (15:15)
--- NOTE | 2018-10-25 16:30 | NUR ---
Pt transferred to OR. collin Vasquez in pt chart. All preop documents in pt chart/w/patient. Accompanied by pt son, Cullen. pt stable at this time. NPO since after breakfast. MD/surgeon consented to breakfast/NPO after. pt administerd medications as ordered before surgery scheduled. surgeon aware pt administered AM medications ASA 81 mg, Lovonox 30mg. surgery will go as scheduled.
[2018-10-25] MEDS ORDERED: tetracaine 1% (10mg/ml) pres. free inj. ONE (16:55)
[2018-10-25] MEDS ORDERED: tranexamic acid inj. 1,000 MG in normal saline 100ml IV soln 100 ML IV ONE (16:56)
[2018-10-25] MEDS ORDERED: fentaNYL/PF 50MCG/1 ML 2ML syringe ONE (16:58)
[2018-10-25] MEDS ORDERED: midazolam 2 mg/2 ml injection ONE (16:58)
[2018-10-25] MEDS ORDERED: ringers solution, lacted 1,000 ML IV SCH (17:46)
[2018-10-25] MEDS ORDERED: proCHLORperazine 10 MG/2 ml inj IV PRN (17:50)
[2018-10-25] MEDS ORDERED: ondansetron/PF 4mg/2ml inj IV PRN (17:50)
[2018-10-25] MEDS ORDERED: morphine 4 MG/ML inj SYRINge IV PRN ×2 (17:50)
[2018-10-25] MEDS ORDERED: meperidine/PF 25mg/ml syringe IV PRN ×3 (17:50)
[2018-10-25] MEDS: lactose-reduced food (Ensure High Protein) 237ml bottle PO SCH (18:00)
[2018-10-25] MEDS ORDERED: ePHEDrine 50MG/ML INJ. ONE (18:31)
[2018-10-25] MEDS ORDERED: propofol inj 20 ML IV ONE (18:31)
--- NOTE | 2018-10-25 18:40 | NUR ---
Received from OR via , accompanied by Anesthesiologist DR LOYOLA and report given by Anesthesiolgist. AWAKE AND TRICIA PAIN. VITALS STABLE. DRESSING DI. TRICIA PAIN. SENSATION JUST ABOVE THE HIPS. EVANS WITH CLEAR URINE.
--- NOTE | 2018-10-25 19:30 | NUR ---
Report called to receiving nurse. Transferred via BED Belongings . Special Issues communicated to receiving nurse. AWAKE AND STATES NO DISCOMFORT. VITALS STABLE. DRESSING DI. TO ORTHO RM 4014A AT THIS TIME.
--- NOTE | 2018-10-25 19:41 | NUR ---
PT BACK FROM OR. REORIENTED TO THE ROOM. VSS. RECEIVED REPORT FROM FE REVELES PRIOR TO PT'S ARRIVAL.
[2018-10-25] MEDS: HYDROmorphone 1 mg/ml syringe IV PRN (20:49)
[2018-10-25] MEDS: insulin glargine (Lantus) pen - multi-dose SQ SCH (20:49)
[2018-10-25] MEDS: Melatonin 3mg tablet PO SCH (20:49)
[2018-10-25] MEDS: QUEtiapine 25mg tablet PO SCH (20:50)
[2018-10-25] MEDS ORDERED: vancomycin 1,000mg inj MC ONE (20:50)
[2018-10-25] MEDS: metoprolol succinate 25mg (24-HOUR) SR. Tablet PO SCH (20:51)
[2018-10-25] MEDS ORDERED: HYDROcodone/acetaminophen 5mg/325mg tablet PO PRN (22:00)
--- NOTE | 2018-10-25 22:00 | NUR ---
PT WAS REPEATEDLY ASKING TO TAKE ICE PACKS OFF BECAUSE IT WAS CAUSING PAIN. AFTER TOOK OFF ICE PACKS, HE KEPT ASKING TO TAKE OFF ICE PACKS. THEN HE STARTED TO PULL ON NATASHA DRESSING SAYING "TAKE THIS OFF". PT RECEIVED DILAUDID FOR THE PAIN. CONTINUE TO MONITOR.
[2018-10-25] MEDS: HYDROcodone/acetaminophen 5mg/325mg tablet PO PRN (22:28)
[2018-10-25] MEDS: cefazolin/dext.iso 2gm/100ml 100 ML IV SCH (23:35)
[2018-10-26] MEDS: HYDROmorphone 1 mg/ml syringe IV PRN ×2 (00:54→20:46)
[2018-10-26 02:00] VITALS: BP 127/57
[2018-10-26] MEDS: HYDROcodone/acetaminophen 5mg/325mg tablet PO PRN (05:26)
--- NOTE | 2018-10-26 06:16 | NUR ---
Patient in room [facility] 4014. I have received report from shelli Davenport and had the opportunity to ask questions and assume patient care.
--- NOTE | 2018-10-26 06:47 | NUR ---
Patient in room [facility] 4014. I have received report from FE Gallegos and had the opportunity to ask questions and assume patient care.
[2018-10-26 07:21] LABS: BASOPHILS % (AUTO) 0.4 % (0-1); EOSINOPHILS # (AUTO) 0.2 X10'3 (0-0.9); HEMATOCRIT 27.9 % (42.0-52.0); HEMOGLOBIN 9.5 g/dl (14.0-17.9); LYMPHOCYTES # (AUTO) 1.8 X10'3 (1.1-4.8); LYMPHOCYTES % (AUTO) 25.1 % (21-51); MEAN CORPUSCULAR HEMOGLOBIN 30.9 PG (27.0-31.0); MEAN CORPUSCULAR VOLUME 90.8 FL (78-98); MEAN PLATELET VOLUME 8.2 FL (7.4-10.4); MONOCYTES # (AUTO) 0.8 X10'3 (0-0.9); MONOCYTES % (AUTO) 11.6 % (2-12); NEUTROPHILS # (AUTO) 4.3 X10'3 (1.8-7.7); NEUTROPHILS % (AUTO) 59.9 % (42-75); PLATELET COUNT 114 X10'3 (140-440); RED BLOOD COUNT 3.07 X10'6 (4.70-6.10); RED CELL DISTRIBUTION WIDTH 13.6 % (11.5-14.5); WHITE BLOOD COUNT 7.1 X10'3 (4.5-11.0)
[2018-10-26 07:30] VITALS: BP 128/62
[2018-10-26 07:49] LABS: ALANINE AMINOTRANSFERASE 15 U/L (12-78); ALBUMIN 2.3 G/DL (3.4-5.0); ALBUMIN/GLOBULIN RATIO 0.6 (1.1-1.5); ALKALINE PHOSPHATASE 80 IU/L (46-116); ANION GAP 9 (8-16); ASPARTATE AMINO TRANSFERASE 29 U/L (10-37); BILIRUBIN,TOTAL 0.5 MG/DL (0.1-1.0); BLOOD UREA NITROGEN 37 MG/DL (7-18); BUN/CREATININE RATIO 18.6 (5.4-32.0); CALCIUM 8.4 MG/DL (8.5-10.1); CHLORIDE 110 MMOL/L (99-107); CREATININE 1.99 MG/DL (0.60-1.10); GLUCOSE 207 MG/DL (70-104); MAGNESIUM 1.7 MG/DL (1.5-2.4); POTASSIUM 4.8 MMOL/L (3.5-5.1); SODIUM 142 MMOL/L (135-145); TOTAL CARBON DIOXIDE 23.5 MMOL/L (24-32); TOTAL PROTEIN 6.2 G/DL (6.4-8.2); eGFR 32 ML/MIN
[2018-10-26] MEDS: cefazolin/dext.iso 2gm/100ml 100 ML IV SCH ×2 (07:55→17:49)
[2018-10-26] MEDS: aspirin 81mg tab.chew PO SCH (07:58)
[2018-10-26] MEDS: furosemide 40mg tablet PO SCH (08:00)
[2018-10-26] MEDS: ascorbic acid 500mg tablet PO SCH ×2 (08:00→20:48)
[2018-10-26] MEDS: lactose-reduced food (Ensure High Protein) 237ml bottle PO SCH ×3 (08:00→18:00)
[2018-10-26] MEDS: K and/or MAG REPLACEMENT MC SCH (08:00)
[2018-10-26] MEDS: citalopram 20mg tablet PO SCH (08:00)
[2018-10-26] MEDS: multivitamins, therapeutics tablet PO SCH (08:00)
[2018-10-26] MEDS: atorvastatin 10mg tablet PO SCH (08:01)
[2018-10-26] MEDS: enoxaparin 30mg/0.3ml syringe SQ SCH (08:09)
[2018-10-26 10:00] VITALS: BP 135/61
[2018-10-26] MEDS: insulin Lispro (HumaLOG) vial - multi-dose SQ SCH ×2 (10:08→21:45)
--- NOTE | 2018-10-26 11:51 | NUR ---
Student Medication Administration:For this medication-pass time frame [id number], all medications were reviewed, administered and documented per hospital policy by Kwame Ramirez. Student documentation:I have reviewed and agree with all interventions, assessments performed and documented by Kwame Ramirez.
--- NOTE | 2018-10-26 12:18 | NUR ---
Problems reprioritized. Patient report given, questions answered & plan of care reviewed with Rosy MIRAMONTES.
[2018-10-26] MEDS: normal saline 1000ml 1,000 ML IV SCH ×2 (14:09→20:39)
[2018-10-26] MEDS: Melatonin 3mg tablet PO SCH (20:48)
[2018-10-26] MEDS: metoprolol succinate 25mg (24-HOUR) SR. Tablet PO SCH (20:48)
[2018-10-26] MEDS: QUEtiapine 25mg tablet PO SCH (20:48)
[2018-10-26] MEDS: insulin glargine (Lantus) pen - multi-dose SQ SCH (21:46)
[2018-10-26 22:00] VITALS: BP 130/56
[2018-10-27] MEDS: cefazolin/dext.iso 2gm/100ml 100 ML IV SCH ×2 (00:13→07:58)
[2018-10-27] MEDS: HYDROmorphone 1 mg/ml syringe IV PRN ×2 (01:03→04:34)
[2018-10-27 06:00] VITALS: BP 114/50
--- NOTE | 2018-10-27 06:21 | NUR ---
received report from shelli celeste
[2018-10-27 06:27] LABS: BASOPHILS % (AUTO) 0.4 % (0-1); EOSINOPHILS # (AUTO) 0.1 X10'3 (0-0.9); EOSINOPHILS % (AUTO) 1.2 % (0-6); HEMATOCRIT 27.5 % (42.0-52.0); HEMOGLOBIN 9.1 g/dl (14.0-17.9); LYMPHOCYTES # (AUTO) 2.2 X10'3 (1.1-4.8); LYMPHOCYTES % (AUTO) 28.5 % (21-51); MEAN CORPUSCULAR HEMOGLOBIN 30.8 PG (27.0-31.0); MEAN CORPUSCULAR HGB CONC 33.2 g/dL (33.0-36.5); MEAN CORPUSCULAR VOLUME 92.7 FL (78-98); MEAN PLATELET VOLUME 7.3 FL (7.4-10.4); MONOCYTES # (AUTO) 1.1 X10'3 (0-0.9); MONOCYTES % (AUTO) 14.7 % (2-12); NEUTROPHILS # (AUTO) 4.2 X10'3 (1.8-7.7); NEUTROPHILS % (AUTO) 55.2 % (42-75); PLATELET COUNT 122 X10'3 (140-440); RED BLOOD COUNT 2.97 X10'6 (4.70-6.10); RED CELL DISTRIBUTION WIDTH 13.8 % (11.5-14.5); WHITE BLOOD COUNT 7.5 X10'3 (4.5-11.0)
[2018-10-27 06:58] LABS: ALANINE AMINOTRANSFERASE 8 U/L (12-78); ALBUMIN 2.2 G/DL (3.4-5.0); ALBUMIN/GLOBULIN RATIO 0.5 (1.1-1.5); ALKALINE PHOSPHATASE 82 IU/L (46-116); ANION GAP 9 (8-16); ASPARTATE AMINO TRANSFERASE 31 U/L (10-37); BILIRUBIN,TOTAL 0.3 MG/DL (0.1-1.0); BLOOD UREA NITROGEN 34 MG/DL (7-18); CALCIUM 8.8 MG/DL (8.5-10.1); CHLORIDE 109 MMOL/L (99-107); GLUCOSE 198 MG/DL (70-104); MAGNESIUM 1.8 MG/DL (1.5-2.4); SODIUM 142 MMOL/L (135-145); TOTAL CARBON DIOXIDE 24.4 MMOL/L (24-32); TOTAL PROTEIN 6.4 G/DL (6.4-8.2); eGFR 32 ML/MIN
[2018-10-27] MEDS: K and/or MAG REPLACEMENT MC SCH (07:49)
[2018-10-27] MEDS: HYDROcodone/acetaminophen 5mg/325mg tablet PO PRN (07:55)
[2018-10-27] MEDS: multivitamins, therapeutics tablet PO SCH (07:55)
[2018-10-27] MEDS: atorvastatin 10mg tablet PO SCH (07:55)
[2018-10-27] MEDS: furosemide 40mg tablet PO SCH (07:56)
[2018-10-27] MEDS: citalopram 20mg tablet PO SCH (07:56)
[2018-10-27] MEDS: ascorbic acid 500mg tablet PO SCH (07:56)
[2018-10-27] MEDS: aspirin 81mg tab.chew PO SCH (07:56)
[2018-10-27] MEDS: enoxaparin 30mg/0.3ml syringe SQ SCH (07:57)
[2018-10-27] MEDS: lactose-reduced food (Ensure High Protein) 237ml bottle PO SCH ×2 (08:00→13:08)
--- NOTE | 2018-10-27 08:51 | NUR ---
called pharmacy to notify them that pts short acting insulin is not available at this time, continue to monitor pt
[2018-10-27] MEDS: insulin Lispro (HumaLOG) vial - multi-dose SQ SCH ×2 (09:41→13:15)
--- NOTE | 2018-10-27 10:00 | NUR ---
pt is refusing to have his vs taken at this time, continue to educate and monitor
[2018-10-27] MEDS: normal saline 1000ml 1,000 ML IV SCH (11:07)
--- NOTE | 2018-10-27 14:47 | NUR ---
gave report to [facility]
--- NOTE | 2018-10-27 15:20 | NUR ---
pt d/c with all belongings on [place] accompanied by [facility] personnel to go to [facility] top case assembler told me that she had already notified emily the pt son of this transfer
[2018-10-28] MEDS ORDERED: furosemide 20MG tablet PO SCH (08:00)
== END 2018-10-27 15:27 | DRG 481 ==
LOC: ER 05:37 → ORTHO 4S 10:43 → CMPBEDREQ 19:34 → ORTHO 4S 10-26 17:55
PROVIDERS: ADMIT Family Medicine; ATTEND Family Medicine
PROC: 0QS604Z Reposition Right Upper Femur with Internal Fixation Device, Open Approach (ICD-10-PCS; principal; 2018-10-25 16:51)
DX: S72.001A Fracture of unspecified part of neck of right femur, initial encounter for closed fracture (principal); M97.01XA Periprosthetic fracture around internal prosthetic right hip joint, initial encounter; N18.4 Chronic kidney disease, stage 4 (severe); G93.40 Encephalopathy, unspecified; I13.0 Hypertensive heart and chronic kidney disease with heart failure and stage 1 through stage 4 chronic kidney disease, or unspecified chronic kidney disease; N17.9 Acute kidney failure, unspecified; I50.22 Chronic systolic (congestive) heart failure; E11.22 Type 2 diabetes mellitus with diabetic chronic kidney disease; E78.00 Pure hypercholesterolemia, unspecified; E78.5 Hyperlipidemia, unspecified; F02.80 Dementia in other diseases classified elsewhere, unspecified severity, without behavioral disturbance, psychotic disturbance, mood disturbance, and anxiety; G30.9 Alzheimer's disease, unspecified; J44.9 Chronic obstructive pulmonary disease, unspecified; G89.29 Other chronic pain; I49.5 Sick sinus syndrome; W01.0XXA Fall on same level from slipping, tripping and stumbling without subsequent striking against object, initial encounter; D63.8 Anemia in other chronic diseases classified elsewhere; Z95.0 Presence of cardiac pacemaker; Z79.82 Long term (current) use of aspirin; Z83.3 Family history of diabetes mellitus; Y92.89 Other specified places as the place of occurrence of the external cause
CPT/HCPCS: 36415; 70450; 71045; 73502; 73564; 80053; 80061; 81001; 82948; 83036; 83735; 85025; 85610; 87070; 87088; 93005; 93308; 96361; 96374; 96375; 97110; 97116; 97162; 97530; 99285; A6454; A7000; A9272; G0378; J0690; J1170; J1650; J1815; J2250; J2270; J2405; J2704; J3010; J3370; J7030; J7120

== ENCOUNTER 2019-01-19 19:23 | Emergency (ER) | payer MEDICARE, BC ==
[~2019-01-19] VITALS: Ht 182.9 cm; Wt 68.0 kg
[~2019-01-19 19:23] MED LIST changes: -ASPI-1264 PO; -CALC500T11 PO; -CLIN300C53 PO; -DOCU-28 PO; -FURO-150 PO; -HYDR-4383 PO; -LACT1CAP26 PO; -LACTC PO; -LEVO500T2 PO; -MAGN400O6 PO; -MELA5TAB12 PO; -METO75TA PO; -MULT1TAB74 PO; -NEOM1OIN TOP; -NEOM30OI16 TP; -TRAZ-219 PO; -VALS320T2 PO; -[UNRECOGNIZED DRUG - CODE] PO
[2019-01-19 20:16] LABS: BASOPHILS % (AUTO) 0.3 % (0-1); EOSINOPHILS # (AUTO) 0.1 X10'3 (0-0.9); EOSINOPHILS % (AUTO) 0.7 % (0-6); HEMATOCRIT 30.5 % (42.0-52.0); HEMOGLOBIN 10.2 g/dl (14.0-17.9); LYMPHOCYTES # (AUTO) 1.1 X10'3 (1.1-4.8); LYMPHOCYTES % (AUTO) 13.1 % (21-51); MEAN CORPUSCULAR HEMOGLOBIN 29.2 PG (27.0-31.0); MEAN CORPUSCULAR HGB CONC 33.4 g/dL (33.0-36.5); MEAN CORPUSCULAR VOLUME 87.3 FL (78-98); MEAN PLATELET VOLUME 6.9 FL (7.4-10.4); MONOCYTES # (AUTO) 0.7 X10'3 (0-0.9); MONOCYTES % (AUTO) 8.9 % (2-12); NEUTROPHILS # (AUTO) 6.3 X10'3 (1.8-7.7); PLATELET COUNT 288 X10'3 (140-440); RED BLOOD COUNT 3.49 X10'6 (4.70-6.10); WHITE BLOOD COUNT 8.2 X10'3 (4.5-11.0)
[2019-01-19 20:31] LABS: ALANINE AMINOTRANSFERASE 16 U/L (12-78); ALBUMIN 2.4 G/DL (3.4-5.0); ALBUMIN/GLOBULIN RATIO 0.5 (1.1-1.5); ALKALINE PHOSPHATASE 107 IU/L (46-116); ANION GAP 9 (8-16); ASPARTATE AMINO TRANSFERASE 24 U/L (10-37); BILIRUBIN,TOTAL 0.9 MG/DL (0.1-1.0); BLOOD UREA NITROGEN 30 MG/DL (7-18); BUN/CREATININE RATIO 16.3 (5.4-32.0); CALCIUM 8.6 MG/DL (8.5-10.1); CHLORIDE 103 MMOL/L (99-107); CREATININE 1.84 MG/DL (0.60-1.10); GLUCOSE 225 MG/DL (70-104); POTASSIUM 4.5 MMOL/L (3.5-5.1); SODIUM 137 MMOL/L (135-145); TOTAL CARBON DIOXIDE 25.1 MMOL/L (24-32); TOTAL PROTEIN 7.3 G/DL (6.4-8.2); eGFR 35 ML/MIN
[2019-01-19 20:37] LABS: CLARITY,URINE CLEAR (Clear); COLOR,URINE YELLOW (Yellow); GLUCOSE, URINE 100 mg/dl (Neg); KETONES,URINE TRACE mg/dl (Neg); LEUKOCYTE ESTERASE ,URINE NEGATIVE (Neg); NITRITES, URINE NEGATIVE (Neg); OCCULT BLOOD,URINE TRACE-INTACT (Neg); PROTEIN,URINE 100 mg/dl (Neg)
[2019-01-19 20:43] LABS: UA COLLECTION TYPE CLN CATCH MIDSTREAM
[2019-01-19 20:44] LABS: BACTERIA,URINE NONE SEEN /HPF (Neg); HYALINE CASTS 0-3 /LPF (NEGATIVE); MUCUS STRANDS NONE SEEN /LPF (Neg); RBC,URINE 0-2 /HPF (0-2); SQUAMOUS EPITHELIAL CELL,UR NONE SEEN /LPF (FEW); WBC,URINE NONE SEEN /HPF (0-4)
[2019-01-19] MEDS ORDERED: MECL-111 PO (20:49)
[2019-01-19] MEDS ORDERED: meclizine 12.5mg tablet PO ONE (20:50)
[2019-01-19] MEDS ORDERED: ondansetron 4mg rapidly disintigrating tab PO ONE (20:50)
--- NOTE | 2019-01-19 21:07 | NUR ---
[facility] CALLED FOR TRANSPORTATION HOME. ETA APPROX [id number]
[2019-01-19 21:35] VITALS: BP 110/90
== END 2019-01-19 21:37 | disposition home or self-care (01) ==
LOC: ER 19:23
DX: R42 Dizziness and giddiness (principal); R53.1 Weakness; I13.0 Hypertensive heart and chronic kidney disease with heart failure and stage 1 through stage 4 chronic kidney disease, or unspecified chronic kidney disease; E11.22 Type 2 diabetes mellitus with diabetic chronic kidney disease; N18.9 Chronic kidney disease, unspecified; I50.9 Heart failure, unspecified; J44.9 Chronic obstructive pulmonary disease, unspecified; G89.29 Other chronic pain; Z98.890 Other specified postprocedural states; Z79.899 Other long term (current) drug therapy; Z79.4 Long term (current) use of insulin; Z79.82 Long term (current) use of aspirin
CPT/HCPCS: 36415; 71045; 80053; 81001; 84484; 85025; 93005; 99284; J2405; J8597

== ENCOUNTER 2019-01-30 10:23 | Emergency (ER) | payer MEDICARE, BC ==
[~2019-01-30] VITALS: Ht 180.3 cm; Wt 61.0 kg
[~2019-01-30 10:23] MED LIST changes: +MECL-111 PO
--- NOTE | 2019-01-30 10:26 | NUR ---
BIB EMS WITH C/O GROWLING, GNAWING ABDOMINAL PAIN SINCE YESTERDAY. HX DECREASED APPETITE. ALERT AND COOPERATIVE ON ARRIVAL.
[2019-01-30] MEDS ORDERED: normal saline 1000ML IV soln IVB ONE (10:35)
[2019-01-30 11:04] LABS: BASOPHILS % (AUTO) 0.7 % (0-1); EOSINOPHILS # (AUTO) 0.4 X10'3 (0-0.9); EOSINOPHILS % (AUTO) 6.3 % (0-6); HEMATOCRIT 31.9 % (42.0-52.0); HEMOGLOBIN 10.6 g/dl (14.0-17.9); LYMPHOCYTES # (AUTO) 2.4 X10'3 (1.1-4.8); LYMPHOCYTES % (AUTO) 34.3 % (21-51); MEAN CORPUSCULAR HEMOGLOBIN 28.4 PG (27.0-31.0); MEAN CORPUSCULAR HGB CONC 33.3 g/dL (33.0-36.5); MEAN CORPUSCULAR VOLUME 85.5 FL (78-98); MONOCYTES # (AUTO) 0.8 X10'3 (0-0.9); MONOCYTES % (AUTO) 12.3 % (2-12); NEUTROPHILS # (AUTO) 3.2 X10'3 (1.8-7.7); NEUTROPHILS % (AUTO) 46.4 % (42-75); PLATELET COUNT 322 X10'3 (140-440); RED BLOOD COUNT 3.74 X10'6 (4.70-6.10); RED CELL DISTRIBUTION WIDTH 15.9 % (11.5-14.5); WHITE BLOOD COUNT 6.9 X10'3 (4.5-11.0)
[2019-01-30 11:23] LABS: ALANINE AMINOTRANSFERASE 16 U/L (12-78); ALBUMIN 2.1 G/DL (3.4-5.0); ALBUMIN/GLOBULIN RATIO 0.4 (1.1-1.5); ALKALINE PHOSPHATASE 93 IU/L (46-116); ANION GAP 10 (8-16); ASPARTATE AMINO TRANSFERASE 22 U/L (10-37); BILIRUBIN,TOTAL 0.6 MG/DL (0.1-1.0); BLOOD UREA NITROGEN 33 MG/DL (7-18); CHLORIDE 107 MMOL/L (99-107); CREATININE 1.94 MG/DL (0.60-1.10); GLUCOSE 215 MG/DL (70-104); LIPASE 75 U/L (73-393); POTASSIUM 4.7 MMOL/L (3.5-5.1); SODIUM 141 MMOL/L (135-145); TOTAL PROTEIN 7.6 G/DL (6.4-8.2); eGFR 33 ML/MIN
[2019-01-30 11:29] LABS: CALCIUM 8.6 MG/DL (8.5-10.1)
[2019-01-30 11:55] LABS: CLARITY,URINE CLEAR (Clear); COLOR,URINE STRAW (Yellow); GLUCOSE, URINE 100 mg/dl (Neg); KETONES,URINE NEGATIVE (Neg); LEUKOCYTE ESTERASE ,URINE NEGATIVE (Neg); NITRITES, URINE NEGATIVE (Neg); OCCULT BLOOD,URINE NEGATIVE (Neg); PROTEIN,URINE 100 mg/dl (Neg)
[2019-01-30 11:59] LABS: UA COLLECTION TYPE VOIDED
[2019-01-30 12:03] LABS: BACTERIA,URINE FEW /HPF (Neg); FINE GRANULAR CAST 0-3 /LPF (NEGATIVE); MUCUS STRANDS FEW /LPF (Neg); RBC,URINE 0-2 /HPF (0-2); SQUAMOUS EPITHELIAL CELL,UR FEW /LPF (FEW); WBC CLUMPS,URINE FEW /HPF (NEGATIVE)
--- NOTE | 2019-01-30 12:15 | NUR ---
CALLED [facility] AND THEY STATE PT TO BE TRANSPORTED BY [facility], MAYNOR GEORGE CALLED [facility], NO ETA AT THIS TIME.
--- NOTE | 2019-01-30 12:25 | NUR ---
INCONTINENT OF URINE. CLEAN DIAPER APPLIED. ABLD TO TURN [id number] IN BED. PAIN LESS AT PRESENT.
[2019-01-30 12:42] VITALS: BP 135/73
--- NOTE | 2019-01-30 12:42 | NUR ---
[facility] TRANSPORT HERE AND DEPARTED PATIENT PER WC IN GOOD CONDITION.
== END 2019-01-30 12:44 | disposition home or self-care (01) ==
LOC: ER 10:24
DX: R10.84 Generalized abdominal pain (principal); F03.90 Unspecified dementia, unspecified severity, without behavioral disturbance, psychotic disturbance, mood disturbance, and anxiety; I11.0 Hypertensive heart disease with heart failure; I50.9 Heart failure, unspecified; E78.00 Pure hypercholesterolemia, unspecified; J44.9 Chronic obstructive pulmonary disease, unspecified; E11.9 Type 2 diabetes mellitus without complications; G89.29 Other chronic pain; Z98.890 Other specified postprocedural states; Z79.82 Long term (current) use of aspirin; Z79.4 Long term (current) use of insulin; Z79.899 Other long term (current) drug therapy
CPT/HCPCS: 36415; 80053; 81001; 83690; 85025; 87088; 99284; J7040

== ENCOUNTER 2019-03-20 05:07 | Emergency (ER) | payer MEDICARE, BC ==
[~2019-03-20] VITALS: Ht 183.5 cm; Wt 70.5 kg
[2019-03-20 06:14] LABS: PARTIAL THROMBOPLASTIN TIME 28 SECONDS (22-32)
[2019-03-20 06:15] LABS: ALANINE AMINOTRANSFERASE 14 U/L (12-78); ALBUMIN 2.3 G/DL (3.4-5.0); ALBUMIN/GLOBULIN RATIO 0.5 (1.1-1.5); ALKALINE PHOSPHATASE 73 IU/L (46-116); ANION GAP 8 (8-16); ASPARTATE AMINO TRANSFERASE 16 U/L (10-37); BASOPHILS % (AUTO) 0.4 % (0-1); BILIRUBIN,TOTAL 0.2 MG/DL (0.1-1.0); BLOOD UREA NITROGEN 25 MG/DL (7-18); BUN/CREATININE RATIO 13.6 (5.4-32.0); CALCIUM 8.3 MG/DL (8.5-10.1); CHLORIDE 113 MMOL/L (99-107); CREATININE 1.84 MG/DL (0.60-1.10); EOSINOPHILS # (AUTO) 0.4 X10'3 (0-0.9); EOSINOPHILS % (AUTO) 5.1 % (0-6); GLUCOSE 83 MG/DL (70-104); HEMATOCRIT 32.3 % (42.0-52.0); HEMOGLOBIN 10.3 g/dl (14.0-17.9); LYMPHOCYTES # (AUTO) 2.6 X10'3 (1.1-4.8); MEAN CORPUSCULAR HEMOGLOBIN 27.6 PG (27.0-31.0); MEAN CORPUSCULAR VOLUME 86.2 FL (78-98); MEAN PLATELET VOLUME 6.9 FL (7.4-10.4); MONOCYTES # (AUTO) 0.8 X10'3 (0-0.9); NEUTROPHILS # (AUTO) 3.8 X10'3 (1.8-7.7); NEUTROPHILS % (AUTO) 49.5 % (42-75); PLATELET COUNT 244 X10'3 (140-440); POTASSIUM 4.2 MMOL/L (3.5-5.1); RED BLOOD COUNT 3.74 X10'6 (4.70-6.10); RED CELL DISTRIBUTION WIDTH 17.9 % (11.5-14.5); SODIUM 147 MMOL/L (135-145); TOTAL CARBON DIOXIDE 26.1 MMOL/L (24-32); TOTAL PROTEIN 7.2 G/DL (6.4-8.2); WHITE BLOOD COUNT 7.6 X10'3 (4.5-11.0); eGFR 35 ML/MIN
[2019-03-20 06:22] LABS: MAGNESIUM 1.8 MG/DL (1.5-2.4)
--- NOTE | 2019-03-20 08:49 | NUR ---
TELEPHONE CALL TO THE [facility] ASSISTED LIVING AND INFORMED THAT PATIENT IS DISCHARGED. STAFF MEMBER, DSEIREE, STATES THAT PATIENT'S SON, ALBIN, SHOULD BE NOTIFIED AND MAY BE PROVIDING TRANSPORTATION. TC TO SON AT [phone] AND MESSAGE LEFT. PATIENT RESTING ON GURNEY IN GOOD CONDITION.
[2019-03-20 08:51] VITALS: BP 133/74
--- NOTE | 2019-03-20 10:04 | NUR ---
ATTEMPTED TO CALL SON, ALBIN WITHOUT SUCCESS. MESSAGE LEFT. TC TO [facility] ASSISTED LIVING AND INFORMED, JACOB, STAFF MEMBER, THAT AKIL IS DISCHARGED AND NEEDS TO HAVE TRANSPORTATION ARRANGED SINCE SON IS NOT AVAILABLE PER PHONE.
== END 2019-03-20 11:12 | disposition home or self-care (01) ==
LOC: ER 05:07
DX: R07.89 Other chest pain (principal); I11.0 Hypertensive heart disease with heart failure; I50.9 Heart failure, unspecified; E78.00 Pure hypercholesterolemia, unspecified; J44.9 Chronic obstructive pulmonary disease, unspecified; E11.9 Type 2 diabetes mellitus without complications; G89.29 Other chronic pain; Z98.890 Other specified postprocedural states; Z79.82 Long term (current) use of aspirin; Z79.899 Other long term (current) drug therapy; Z79.4 Long term (current) use of insulin; Z79.2 Long term (current) use of antibiotics
CPT/HCPCS: 36415; 71045; 80053; 83735; 83880; 84484; 85025; 85610; 85730; 93005; 99284

== ENCOUNTER 2019-04-01 22:48 | Emergency (ER) | payer MEDICARE, BC ==
[~2019-04-01] VITALS: Ht 182.9 cm; Wt 68.2 kg
[2019-04-01] MEDS ORDERED: normal saline 1000ML IV soln IVB ONE (23:05)
[2019-04-01 23:23] LABS: BASOPHILS % (AUTO) 0.5 % (0-1); EOSINOPHILS # (AUTO) 0.3 X10'3 (0-0.9); EOSINOPHILS % (AUTO) 5.1 % (0-6); HEMATOCRIT 29.6 % (42.0-52.0); HEMOGLOBIN 9.7 g/dl (14.0-17.9); LYMPHOCYTES # (AUTO) 3.1 X10'3 (1.1-4.8); LYMPHOCYTES % (AUTO) 48.2 % (21-51); MEAN CORPUSCULAR HEMOGLOBIN 27.6 PG (27.0-31.0); MEAN CORPUSCULAR HGB CONC 32.7 g/dL (33.0-36.5); MEAN CORPUSCULAR VOLUME 84.4 FL (78-98); MEAN PLATELET VOLUME 6.5 FL (7.4-10.4); MONOCYTES # (AUTO) 0.8 X10'3 (0-0.9); MONOCYTES % (AUTO) 12.9 % (2-12); NEUTROPHILS # (AUTO) 2.1 X10'3 (1.8-7.7); NEUTROPHILS % (AUTO) 33.3 % (42-75); PLATELET COUNT 215 X10'3 (140-440); RED BLOOD COUNT 3.51 X10'6 (4.70-6.10); RED CELL DISTRIBUTION WIDTH 17.7 % (11.5-14.5); WHITE BLOOD COUNT 6.4 X10'3 (4.5-11.0)
[2019-04-01 23:34] LABS: PARTIAL THROMBOPLASTIN TIME 28 SECONDS (22-32)
[2019-04-01 23:36] LABS: ALANINE AMINOTRANSFERASE 12 U/L (12-78); ALBUMIN 2.3 G/DL (3.4-5.0); ALBUMIN/GLOBULIN RATIO 0.5 (1.1-1.5); ALKALINE PHOSPHATASE 79 IU/L (46-116); ANION GAP 10 (8-16); ASPARTATE AMINO TRANSFERASE 18 U/L (10-37); BILIRUBIN,TOTAL 0.3 MG/DL (0.1-1.0); BLOOD UREA NITROGEN 38 MG/DL (7-18); BUN/CREATININE RATIO 17.8 (5.4-32.0); CALCIUM 7.7 MG/DL (8.5-10.1); CHLORIDE 112 MMOL/L (99-107); CREATININE 2.13 MG/DL (0.60-1.10); GLUCOSE 85 MG/DL (70-104); POTASSIUM 4.8 MMOL/L (3.5-5.1); SODIUM 146 MMOL/L (135-145); TOTAL CARBON DIOXIDE 23.6 MMOL/L (24-32); TOTAL PROTEIN 6.6 G/DL (6.4-8.2); eGFR 30 ML/MIN
[2019-04-01 23:44] LABS: TROPONIN I < 0.04 NG/ML (0.0-0.05)
[2019-04-02 01:24] LABS: CLARITY,URINE CLEAR (Clear); COLOR,URINE YELLOW (Yellow); GLUCOSE, URINE NEGATIVE (Neg); KETONES,URINE NEGATIVE (Neg); LEUKOCYTE ESTERASE ,URINE NEGATIVE (Neg); NITRITES, URINE NEGATIVE (Neg); OCCULT BLOOD,URINE NEGATIVE (Neg); PROTEIN,URINE 100 mg/dl (Neg); UA COLLECTION TYPE FOLEY CATH; UROBILINOGEN,URINE 0.2 E.U/dL (0.2-1.0)
[2019-04-02 01:38] LABS: AMORPHOUS URATES 1+; BACTERIA,URINE NONE SEEN /HPF (Neg); MUCUS STRANDS FEW /LPF (Neg); RBC,URINE 0-2 /HPF (0-2); SQUAMOUS EPITHELIAL CELL,UR NONE SEEN /LPF (FEW); WBC,URINE 0-4 /HPF (0-4)
[2019-04-02 02:09] VITALS: BP 159/75
--- NOTE | 2019-04-02 02:10 | NUR ---
CALLED [facility] AT 2:10 FOR A RIDE [facility]. ETA 30-35 MINS
== END 2019-04-02 02:43 | disposition home or self-care (01) ==
LOC: ER 22:50
DX: R41.82 Altered mental status, unspecified (principal); F03.90 Unspecified dementia, unspecified severity, without behavioral disturbance, psychotic disturbance, mood disturbance, and anxiety; I11.0 Hypertensive heart disease with heart failure; I50.9 Heart failure, unspecified; E78.00 Pure hypercholesterolemia, unspecified; J44.9 Chronic obstructive pulmonary disease, unspecified; E11.9 Type 2 diabetes mellitus without complications; G89.29 Other chronic pain; Z98.890 Other specified postprocedural states; Z79.82 Long term (current) use of aspirin; Z79.4 Long term (current) use of insulin; Z79.899 Other long term (current) drug therapy
CPT/HCPCS: 36415; 70450; 71045; 80053; 81001; 84484; 85025; 85610; 85730; 93005; 99284; J7040; P9612

== ENCOUNTER 2019-04-11 07:49 | Emergency (ER) | payer MEDICARE, BC ==
[~2019-04-11] VITALS: Ht 188 cm; Wt 80.0 kg
[2019-04-11] MEDS ORDERED: bacitracin 15gm ointment TP ONE (08:05)
[2019-04-11] MEDS ORDERED: TETanus/Pertussis (Acell)/Diphther VAC/PF (Tdap-Adult) 0.5ml syringe IM ONE (08:05)
--- NOTE | 2019-04-11 08:15 | NUR ---
Kike RN: Patient to CT.
[2019-04-11 09:12] VITALS: BP 139/80
[2019-04-11 09:16] LABS: BASOPHILS % (AUTO) 0.5 % (0-1); EOSINOPHILS # (AUTO) 0.1 X10'3 (0-0.9); EOSINOPHILS % (AUTO) 0.9 % (0-6); HEMATOCRIT 35.7 % (42.0-52.0); HEMOGLOBIN 11.5 g/dl (14.0-17.9); LYMPHOCYTES # (AUTO) 1.5 X10'3 (1.1-4.8); LYMPHOCYTES % (AUTO) 15.7 % (21-51); MEAN CORPUSCULAR HEMOGLOBIN 27.7 PG (27.0-31.0); MEAN CORPUSCULAR HGB CONC 32.3 g/dL (33.0-36.5); MEAN CORPUSCULAR VOLUME 85.6 FL (78-98); MEAN PLATELET VOLUME 7.1 FL (7.4-10.4); MONOCYTES # (AUTO) 0.7 X10'3 (0-0.9); MONOCYTES % (AUTO) 7.7 % (2-12); NEUTROPHILS % (AUTO) 75.2 % (42-75); PLATELET COUNT 213 X10'3 (140-440); RED BLOOD COUNT 4.18 X10'6 (4.70-6.10); WHITE BLOOD COUNT 9.3 X10'3 (4.5-11.0)
[2019-04-11 09:24] LABS: ALANINE AMINOTRANSFERASE 25 U/L (12-78); ALBUMIN 2.8 G/DL (3.4-5.0); ALBUMIN/GLOBULIN RATIO 0.5 (1.1-1.5); ALKALINE PHOSPHATASE 102 IU/L (46-116); ANION GAP 11 (8-16); ASPARTATE AMINO TRANSFERASE 32 U/L (10-37); BILIRUBIN,TOTAL 0.3 MG/DL (0.1-1.0); BLOOD UREA NITROGEN 35 MG/DL (7-18); BUN/CREATININE RATIO 18.1 (5.4-32.0); CALCIUM 8.2 MG/DL (8.5-10.1); CHLORIDE 108 MMOL/L (99-107); CREATININE 1.93 MG/DL (0.60-1.10); GLUCOSE 147 MG/DL (70-104); POTASSIUM 5.4 MMOL/L (3.5-5.1); SODIUM 144 MMOL/L (135-145); TOTAL CARBON DIOXIDE 25.2 MMOL/L (24-32); TOTAL PROTEIN 8.2 G/DL (6.4-8.2); eGFR 33 ML/MIN
[2019-04-11 09:34] LABS: CREATINE KINASE 74 U/L (39-308); MAGNESIUM 1.9 MG/DL (1.5-2.4)
[2019-04-11 11:14] LABS: TOTAL CELLS COUNTED 200
[2019-04-11 11:15] LABS: ANISOCYTOSIS 1+; METAMYLEOCYTES% (MANUAL) 0 % (0-0); PLATELET ESTIMATE NORMAL
== END 2019-04-11 11:37 | disposition home or self-care (01) ==
LOC: ER 07:49
DX: S06.0X0A Concussion without loss of consciousness, initial encounter (principal); S51.812A Laceration without foreign body of left forearm, initial encounter; S00.03XA Contusion of scalp, initial encounter; R41.0 Disorientation, unspecified; F03.90 Unspecified dementia, unspecified severity, without behavioral disturbance, psychotic disturbance, mood disturbance, and anxiety; E78.00 Pure hypercholesterolemia, unspecified; J44.9 Chronic obstructive pulmonary disease, unspecified; G89.29 Other chronic pain; I50.9 Heart failure, unspecified; I11.0 Hypertensive heart disease with heart failure; Z79.899 Other long term (current) drug therapy; Z79.82 Long term (current) use of aspirin; Z79.4 Long term (current) use of insulin; Z98.890 Other specified postprocedural states; Z60.2 Problems related to living alone; W18.39XA Other fall on same level, initial encounter; Y93.89 Activity, other specified; Y92.89 Other specified places as the place of occurrence of the external cause; Y99.8 Other external cause status
CPT/HCPCS: 36415; 70450; 70486; 71045; 72125; 80053; 82550; 82553; 83735; 84484; 85025; 90471; 93005; 99284

== ENCOUNTER 2019-08-03 05:30 | Emergency (ER) | payer MEDICARE, BC ==
[~2019-08-03] VITALS: Ht 182.9 cm; Wt 65.9 kg
[~2019-08-03 05:30] MED LIST changes: -ESCI10TA54 PO; +ESCI10TA61 PO; -MECL-111 PO; +MECL-159 PO
[2019-08-03 06:04] LABS: BASOPHILS % (AUTO) 0.4 % (0-1); EOSINOPHILS # (AUTO) 0.1 X10'3 (0-0.9); EOSINOPHILS % (AUTO) 0.9 % (0-6); HEMATOCRIT 35.2 % (42.0-52.0); HEMOGLOBIN 11.7 g/dl (14.0-17.9); LYMPHOCYTES # (AUTO) 0.8 X10'3 (1.1-4.8); LYMPHOCYTES % (AUTO) 10.6 % (21-51); MEAN CORPUSCULAR HGB CONC 33.1 g/dL (33.0-36.5); MEAN CORPUSCULAR VOLUME 87.4 FL (78-98); MEAN PLATELET VOLUME 7.1 FL (7.4-10.4); MONOCYTES # (AUTO) 0.7 X10'3 (0-0.9); MONOCYTES % (AUTO) 9.3 % (2-12); NEUTROPHILS # (AUTO) 5.8 X10'3 (1.8-7.7); NEUTROPHILS % (AUTO) 78.8 % (42-75); PLATELET COUNT 209 X10'3 (140-440); RED BLOOD COUNT 4.03 X10'6 (4.70-6.10); RED CELL DISTRIBUTION WIDTH 15.9 % (11.5-14.5); WHITE BLOOD COUNT 7.4 X10'3 (4.5-11.0)
--- NOTE | 2019-08-03 06:13 | NUR ---
DR MUNGUIA NOTIFIED OF PT'S BS OF 50. PT WAS GIVEN A CUP OF APPLESAUCE WITH A PACKET OF SUGAR AND TOOK SIPS OF APPLE JUICE.
[2019-08-03 06:19] LABS: ALANINE AMINOTRANSFERASE 27 U/L (12-78); ALBUMIN 2.7 G/DL (3.4-5.0); ALBUMIN/GLOBULIN RATIO 0.5 (1.1-1.5); ALKALINE PHOSPHATASE 127 IU/L (46-116); ANION GAP 12 (8-16); ASPARTATE AMINO TRANSFERASE 27 U/L (10-37); BILIRUBIN,TOTAL 0.4 MG/DL (0.1-1.0); BLOOD UREA NITROGEN 36 MG/DL (7-18); BUN/CREATININE RATIO 19.3 (5.4-32.0); CALCIUM 8.8 MG/DL (8.5-10.1); CHLORIDE 109 MMOL/L (99-107); CREATININE 1.87 MG/DL (0.60-1.10); GLUCOSE 55 MG/DL (70-104); SODIUM 146 MMOL/L (135-145); TOTAL CARBON DIOXIDE 25.1 MMOL/L (24-32); TOTAL PROTEIN 7.7 G/DL (6.4-8.2); eGFR 34 ML/MIN
[2019-08-03 06:56] LABS: LARGE PLATELETS FEW; PLATELET ESTIMATE NORMAL; TOTAL CELLS COUNTED 100
--- NOTE | 2019-08-03 07:23 | NUR ---
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 Patient notified.
--- NOTE | 2019-08-03 07:24 | NUR ---
Notified Genoveva at the [facility] regarding transport.
[2019-08-03 08:16] VITALS: BP 121/66
== END 2019-08-03 08:17 | disposition home or self-care (01) ==
LOC: ER 05:31
DX: R06.00 Dyspnea, unspecified (principal); F03.90 Unspecified dementia, unspecified severity, without behavioral disturbance, psychotic disturbance, mood disturbance, and anxiety; E11.9 Type 2 diabetes mellitus without complications; I11.0 Hypertensive heart disease with heart failure; I50.9 Heart failure, unspecified; E78.00 Pure hypercholesterolemia, unspecified; J44.9 Chronic obstructive pulmonary disease, unspecified; G89.29 Other chronic pain; Z87.891 Personal history of nicotine dependence; Z98.890 Other specified postprocedural states; Z79.82 Long term (current) use of aspirin; Z79.899 Other long term (current) drug therapy
CPT/HCPCS: 36415; 71045; 80053; 82948; 85025; 87040; 93005; 99284